=== PATIENT | male | born 1945 | race Caucasian/White ===

== ENCOUNTER → 2016-06-27 | Outpatient (CLI) | payer OTHER ==
[~2016-06-27] MED LIST: ASCA500 PO; ATOR-22 PO; ATOR-24 PO; CHOL1CAP85 PO; CRFL PO; DOCU-94 PO; DOCU100C31 PO; DOXY25TA7 PO; DRGTP100; FENT25DI10 TD; FLM4 PO; FNTTP50 TD; HYDR-5688 PO; HYG/25 PO; IBUP-1050 PO; IBUP600T44 PO; MEGE40TA13 PO; MEGESTROL PO; MISCCAP80 PO; OXYC10SO PO; PANT40TA PO; PRT/20 PO; SUCR5SUS PO; TAMS0.4C38 PO; WARF5TAB7 PO; [UNRECOGNIZED DRUG - OTHER]
--- NOTE | 2016-06-27 12:50 | DIAGNOSTIC IMAGING REPORT ---
TWO VIEW CHEST CLINICAL HISTORY: Lung cancer. FINDINGS: PA and lateral chest radiographs are compared to study 05/23/2016 and correlated with chest CT dated 06/03/2016. The PA view is degraded by patient rotation. The patient is status post midline sternotomy and cardiac valve surgery. Epicardial pacing leads are noted. The heart is top normal for projection and there is atherosclerotic calcification of the thoracic aorta. The pulmonary vasculature is noncongested. Emphysema is noted and there is chronic interstitial thickening. There are postoperative changes from left-sided pulmonary resection with compensatory hyperinflation of the right lung. The right lung appears clear. There is pleural fluid at the left lung base. Loculated fluid and gas is again noted at the left apex. These findings are unchanged from previous. Lobular pleural lesions at the lateral left lung base are more conspicuous than previous. The skeletal structures are osteopenic. Postoperative changes are seen in the left posterior ribs. IMPRESSION: 1. Advanced emphysema and postoperative changes from left-sided pulmonary resection. 2. Loculated pleural fluid is again seen at the left apex. There is also pleural fluid at the left lung base. 3. Increasing pleural-based lobular soft tissue density is identified at the lateral left lung base. The appearance is highly concerning for pleural metastatic disease when compared to the 06/03/[address] Electronically signed by: Chinedu Caban M.D. 06/27/2016 12:49 PM Dictated Date/Time: 06/27/2016 12:40 PM
== END | disposition home or self-care (01) ==
LOC: C.RAD1850 11:11
PROVIDERS: ATTEND Internal Medicine
DX: C34.90 Malignant neoplasm of unspecified part of unspecified bronchus or lung (principal)

== ENCOUNTER 2016-07-15 17:41 | Inpatient (IN) | payer OTHER ==
[~2016-07-15] VITALS: Ht 175.3 cm; Wt 59.2 kg
[~2016-07-15 17:41] MED LIST changes: -ATOR-24 PO; -CRFL PO; -DOCU-94 PO; -DOCU100C31 PO; -DOXY25TA7 PO; -DRGTP100; -FENT25DI10 TD; -FNTTP50 TD; -IBUP-1050 PO; -IBUP600T44 PO; -MEGE40TA13 PO; -MEGESTROL PO; -OXYC10SO PO; -PANT40TA PO; -PRT/20 PO; -SUCR5SUS PO; -TAMS0.4C38 PO; -WARF5TAB7 PO; -[UNRECOGNIZED DRUG - OTHER]
[2016-07-15] MEDS ORDERED: SODIUM CHLORIDE 0.9% 1000ML 1,000 ML IV ONE (18:02)
[2016-07-15] MEDS ORDERED: HYDROmorphone INJ 1 MG/ML SYR IV PRN (18:15)
[2016-07-15] MEDS ORDERED: MoRPHine SULFATE 4 MG/ML 1 ML CARP\\VIAL IV PRN (18:15)
--- NOTE | 2016-07-15 18:20 | EMERGENCY ROOM VISIT NOTE ---
History Report prepared by Emma: Alma Rosa Zamora Under the Supervision of: Dr. Ervin Olguin D.O. First contact with patient: 17:56 Chief Complaint: WEAKNESS Stated Complaint: LOSS OF BLADDER CONTROL & BALANCE,WEAKNESS,LF BACK History of Present Illness The patient is a 70 year old male who presents to the Emergency Room with complaints of severe left lower back pain starting a few days ago. He has been applying Fentanyl patch without relief. He has worsening pain with movement and palpation. He has had a reduced appetite. He has had urinary incontinence in the past few days. As per daughter, he has also been confused. He denies fevers , chills, vomiting, rash, or any other complaints. As per daughter, he had a noncontrast CT scan about a week ago which showed numerous pleural masses and the already known aneurysm but did not reveal any obstructions in the kidney. The patient fell down once 5 days ago and then another time 4 days ago. He lost his balance both times. He started complaining of some chest and shoulder pain after the fall. He also hit his head once and has a lump on the top of his head. He denies any headache. He has a history of lobectomy in February 2016. He also has a history of lung cancer, stage IV kidney disease, and pacemaker. He has been diagnosed with an aneurysm in aortic arch and in abdomen. He will have surgery for the aneurysm in the next few days. He currently does not have any active cancer. He is no longer on Coumadin. Source of History: patient Onset: a few days ago Position: back (left lower) Symptom Intensity: severe Modifying Factors (Worsening): movement, other (palpation) Modifying Factors (Relieving): other (Fentanyl patch without relief) Associated Symptoms: + chest pain, No chills, No fevers, No headache, No rash, No vomiting Review of Systems See HPI for pertinent positives & negatives. A total of 10 systems reviewed and were otherwise negative. Past Medical & Surgical Medical Problems: (1) Altered level of consciousness (2) Clotted chest tube (3) Complication of chest tube (4) H/O heart artery stent (5) Hypercalcemia (6) Lung mass (7) Myocardial infarction (8) Post-op pain Surgical Problems: (1) History of chest tube placement (2) History of open heart surgery (3) S/P lobectomy of lung Family History FH: breast cancer MOTHER Heart disease FATHER Lung disease Social History Smoking Status: Smoker Current Status UNK Alcohol Use: none Drug Use: none Marital Status: Housing Status: lives with family Occupation Status: retired Current/Historical Medications Scheduled Ascorbic Acid (Vitamin C), 500 MG PO QAM Atorvastatin (Lipitor), 40 MG PO HS Chlorthalidone (Hygroton), 25 MG PO QAM Cholecalciferol (Vitamin D3), 10,000 UNIT PO QAM Docusate Sodium (Docusate Sodium), 1 CAP PO HS Fentanyl (Duragesic), 50 MCG TD [id number] Ibuprofen (Advil), PO PRN UD Megestrol Acetate (Megace), 400 MG PO BID Pantoprazole (Protonix), 40 MG PO DAILY Probiotic Product (Probiotic), 1 CAP PO HS Sucralfate (Carafate), 1 TSP PO QID Tamsulosin Hcl (Flomax), 0.4 MG PO HS Warfarin Sod (Jantoven), 5 MG PO ON HOLD Scheduled PRN Doxylamine Succinate (Sleep) (Unisom), 50 MG PO HS PRN for Sleep Allergies Coded Allergies: Anesthetics, Amide (Unverified Allergy, Unknown, UNKNOWN REACTION TO UNKNOWN "ANESTHESIA", 06/03/16) Indomethacin (Verified Allergy, Unknown, UNKNOEN, 07/15/16) Physical Exam Vital Signs Date Time Temp Pulse Resp B/P Pulse Ox O2 Delivery O2 Flow Rate FiO2 07/15/16 20:51 66 18 126/68 94 07/15/16 19:16 72 20 117/74 93 Room Air 07/15/16 19:16 67 07/15/16 18:30 93 18 107/69 96 Room Air 07/15/16 18:27 97 Room Air 07/15/16 17:51 36.6 112 18 105/67 95 Room Air Physical Exam GENERAL: Patient is awake, alert, listless appearing, answers questions slowly , appears to be in moderate to severe pain. EYES: The conjunctivae are clear. The pupils are round and reactive. EARS, NOSE, MOUTH AND THROAT: The nose is without any evidence of any deformity. Mucous membranes are dry tongue is midline NECK: The neck is nontender and supple. RESPIRATORY: Lung sounds are diminished throughout with rales at both bases. CARDIOVASCULAR: Tachycardic rate and regular rhythm noted there no murmurs rubs or gallops normal S1 normal S2 GASTROINTESTINAL: The abdomen is soft. Bowel sounds are present in all quadrants. Abdomen is nontender. Defuse venous engorgement noted over the abdominal wall. BACK: Diffuse tenderness to palpation on left, no ecchymosis or rash. MUSCULOSKELETAL/EXTREMITIES: There is no evidence of gross deformity full range of motion is noted in the hips and shoulders SKIN: There is no obvious evidence of any rash. There are no petechiae, pallor or cyanosis noted. No edema noted. Skin is warm and dry. NEUROLOGIC: Patient is awake, alert, and oriented to person, place, and situation. Strength is symmetric. Patellar tendon reflexes 3+ bilaterally. Medical Decision & Procedures ER Provider Diagnostic Interpretation: X ray results and stated below per my interpretation and radiology interpretation. CT results per my review and radiologist interpretation: CT OF THE CHEST WITHOUT IV CONTRAST CLINICAL HISTORY: Left-sided chest pain status post trauma COMPARISON STUDY: 06/03/2016 CT DOSE: 1153.79 mGy.cm TECHNIQUE: CT of the thorax was performed from the thoracic inlet to the lung bases. Images are reviewed in the axial, sagittal, and coronal planes. IV contrast was not administered for this examination. FINDINGS: Thyroid: Imaged portions of the thyroid gland are normal in appearance. Thoracic aorta: The thoracic aorta is normal in course and caliber, noting standard 3 vessel arch anatomy. Heart: The heart is normal in size and configuration, without pericardial effusion. Lungs and pleural spaces: There is severe pulmonary emphysema. There is no pleural fluid on the right. There is a small left pleural effusion which is increasing in size. There are enlarging pleural-based nodules on the left, suspicious for metastatic disease. There is a 4.5 cm left-sided chest wall mass which appears larger on the prior study and is suspicious for neoplasm. There is a small loculated left-sided hydropneumothorax. The cavity is smaller than on the prior study. There are multiple collateral vessels within the left chest wall. There is a stable aneurysm involving the left aortic arch. There is a stable 12 mm irregular right apical opacity Mediastinum: There are borderline mediastinal lymph nodes Josephine: There is no evidence of pathologic hilar adenopathy given the limitations of a noncontrast study Axilla: There is a soft tissue mass within the left lower axilla/chest wall region. Upper abdomen: Partially visualized upper abdominal viscera is within normal limits. Skeletal structures: There are surgical deformities involving the left chest wall. IMPRESSION: 1. Advanced pulmonary emphysema 2. Postsurgical changes of a left upper lobe resection 3. Loculated left apical hydropneumothorax, decreased in size when compared the prior study 4. Stable saccular aneurysm arising from the aortic arch 5. Stable mild mediastinal lymphadenopathy 6. Slight increase in the volume of the left pleural effusion. Enlarging left-sided pleural-based nodules suspicious for metastatic disease. 7. 4.5 cm left-sided chest wall mass, suspicious for metastatic disease. 8. Postsurgical left-sided rib deformities. 9. No acute traumatic findings Electronically signed by: John Agee M.D. 07/15/2016 7:13 PM Dictated Date/Time: 07/15/2016 7:[address] SCAN OF THE ABDOMEN AND PELVIS WITHOUT CONTRAST CLINICAL HISTORY: Left flank pain status post trauma COMPARISON STUDY: 06/04/2016 TECHNIQUE: CT scan of the abdomen and pelvis was performed from the lung bases to the proximal femurs. Images are reviewed in the axial, sagittal, and coronal planes. IV contrast was not administered for this examination. CT DOSE: FINDINGS: Lower chest: There are chest wall collaterals present. There is a small left pleural effusion with pleural-based nodules suspicious for metastatic disease. There is severe pulmonary emphysema. There is subtle radiolucencies. The findings may indicate metastatic disease. Liver: The unenhanced liver is normal in size, contour, and attenuation. There is no intrahepatic biliary ductal dilatation. Gallbladder: Unremarkable. Spleen: Normal in size and attenuation. Pancreas: Unremarkable. Adrenal glands: There is mild adrenal gland thickening similar to the prior study. Kidneys: The unenhanced kidneys are normal in size without hydronephrosis. There is no contour deforming renal mass lesion. No renal calculi are identified. Bowel: There are no transition zones indicate bowel obstruction. There is no acute diverticulitis. Peritoneum: There is no intraperitoneal free air or abdominal ascites. Vasculature: There is a 6.5 cm abdominal aortic aneurysm. Adenopathy: None. Pelvic viscera: The bladder, and pelvic viscera are unremarkable. Skeletal structures: No lumbar fractures or subluxations are visualized IMPRESSION: 1. No CT evidence of acute intra-abdominal or pelvic injury 2. Small left pleural effusion and pleural-based nodularity suspicious for metastatic disease 3. Severe pulmonary emphysema 4. Equivocal subtle rib metastasis 5. 6.5 cm abdominal aortic aneurysm Electronically signed by: John Agee M.D. 07/15/2016 7:19 PM Dictated Date/Time: 07/15/2016 7:14 PM CHEST ONE VIEW PORTABLE CLINICAL HISTORY: Sepsis COMPARISON STUDY: 06/27/2016 FINDINGS: Postsurgical changes are present on the left. There are multiple left-sided rib deformities. There is left apical pleural thickening. There are several pleural-based nodules within the left hemithorax. There are postsurgical changes of a midline sternotomy. There is radiographic evidence of emphysema. There is chronic interstitial thickening most pronounced at the right lung base. This remain similar.[ IMPRESSION: 1. Postsurgical changes on the left with nonspecific pleural-based opacities and persistent left apical pleural thickening 2. Stable interstitial thickening. 3. Emphysema. Electronically signed by: John Agee M.D. 07/15/2016 6:53 PM Dictated Date/Time: 07/15/2016 6:[address] HEAD WITHOUT CONTRAST (CT) CLINICAL HISTORY: Head pain status post head trauma COMPARISON STUDY: 06/03/2016 TECHNIQUE: Axial CT of the brain is performed from the vertex to the skull base. IV contrast was not administered for this examination. CT DOSE: FINDINGS: No intra or extra-axial mass lesions are visualized. There is no CT evidence of acute cortical infarction. There is no evidence of midline shift. There is no acute hemorrhage. No calvarial fractures are visualized. There are patchy white matter hypodensities likely on a small vessel basis. There is no evidence of pathologic ventricular dilatation. There is no evidence of acute sinusitis IMPRESSION: No acute intracranial findings Electronically signed by: John Agee M.D. 07/15/2016 7:06 PM Dictated Date/Time: 07/15/2016 7:05 PM Laboratory Results Test 07/15/16 18:20 07/15/16 18:28 07/15/16 19:39 07/15/16 20:20 Immature Granulocyte % (Auto) 0.6 % White Blood Count 12.69 K/uL (4.8-10.8) Red Blood Count 4.52 M/uL (4.7-6.1) Hemoglobin 10.7 g/dL (14.0-18.0) Hematocrit 33.5 % (42-52) Mean Corpuscular Volume 74.1 fL (80-100) Mean Corpuscular Hemoglobin 23.7 pg (25-34) Mean Corpuscular Hemoglobin Concent 31.9 g/dl (32-36) Platelet Count 228 K/uL (130-400) Mean Platelet Volume 9.8 fL (7.4-10.4) Neutrophils (%) (Auto) 87.8 % Lymphocytes (%) (Auto) 8.1 % Monocytes (%) (Auto) 3.2 % Eosinophils (%) (Auto) 0.2 % Basophils (%) (Auto) 0.1 % Neutrophils # (Auto) 11.13 K/uL (1.4-6.5) Lymphocytes # (Auto) 1.03 K/uL (1.2-3.4) Monocytes # (Auto) 0.41 K/uL (0.11-0.59) Eosinophils # (Auto) 0.03 K/uL (0-0.5) Basophils # (Auto) 0.01 K/uL (0-0.2) Immature Granulocyte # (Auto) 0.08 K/uL (0.00-0.02) Erythrocyte Sedimentation Rate 84 mm/hr (0-14) Activated Partial Thromboplast Time 26.1 SECONDS (21.0-31.0) Partial Thromboplastin Ratio 1.0 Phosphorus Level 2.6 mg/dl (2.5-4.9) Magnesium Level 1.8 mg/dl (1.8-2.4) Total Bilirubin 0.4 mg/dl (0.2-1) Aspartate Amino Transf (AST/SGOT) 12 U/L (15-37) Alanine Aminotransferase (ALT/SGPT) 15 U/L (12-78) Alkaline Phosphatase 76 U/L (45-117) Total Creatine Kinase 35 U/L (39-308) Creatine Kinase MB 2.9 ng/ml (0.5-3.6) Creatine Kinase MB Ratio 8.3 (0-3.0) C-Reactive Protein 3.88 mg/dl (0-0.29) Pro-B-Type Natriuretic Peptide 1331 pg/ml (0-900) Total Protein 8.8 gm/dl (6.4-8.2) Albumin 3.1 gm/dl (3.4-5.0) Globulin 5.7 gm/dl (2.5-4.0) Albumin/Globulin Ratio 0.5 (0.9-2) Lipase 64 U/L (73-393) Bedside Lactic Acid Venous 2.05 mmol/L (0.90-1.70) Venous Blood pH 7.39 (7.36-7.41) Venous Blood Partial Pressure CO2 44 mmHg (38.0-50.0) Venous Blood Partial Pressure O2 28 mmHg Venous Blood HCO3 26 mmol/L Venous Blood Oxygen Saturation < 60.0 % Venous Blood Base Excess 0.7 mmol/L Ammonia 12.0 umol/L (11-32) Urine Color YELLOW Urine Appearance CLEAR (CLEAR) Urine pH 5.0 (4.5-7.5) Urine Specific Gracey 1.015 (1.000-1.030) Urine Protein TRACE (NEG) Urine Glucose (UA) NEG (NEG) Urine Ketones NEG (NEG) Urine Occult Blood NEG (NEG) Urine Nitrite NEG (NEG) Urine Bilirubin NEG (NEG) Urine Urobilinogen NEG (NEG) Urine Leukocyte Esterase NEG (NEG) Urine WBC (Auto) 1-5 /hpf (0-5) Urine RBC (Auto) 0-4 /hpf (0-4) Urine Hyaline Casts (Auto) 5-10 /lpf (0-5) Urine Epithelial Cells (Auto) 20-30 /lpf (0-5) Urine Bacteria (Auto) NEG (NEG) Laboratory results per my review. Medications Administered Medications (Trade) Dose Ordered Sig/Mckenzie Route Start Time Stop Time Status Last Admin Dose Admin Sodium Chloride (Nss 1000ml) 1,000 ml @ 999 mls/hr Q1H1M ONCE IV 07/15/16 18:02 07/15/16 19:02 DC 07/15/16 18:46 999 MLS/HR Hydromorphone HCl 1 mg 1 mg Q60M PRN IV 07/15/16 18:15 07/15/16 23:44 DC 07/15/16 18:48 1 MG Sodium Chloride (Nss 1000ml) 1,000 ml @ 999 mls/hr Q1H1M STAT IV 07/15/16 20:50 07/15/16 21:50 DC 07/15/16 21:18 999 MLS/HR ECG Indication: back/shoulder pain Rate (beats per minute): 76 Rhythm: normal sinus Findings: ST depression (lateral and inferior), no ectopy, other (LVH by voltage criteria) Comparison ECG Date: June 05, 2016 Change: Changes are new when compared to June 05, 2016. ED Course 175: The patient was evaluated in room C07. A complete history and physical examination were performed. 180: Sodium Chloride 1000 ml @ 999 mls/hr IV 1814: Dilaudid Inj 1 mg IV, Morphine Sulfate 4 mg IV 2049: Sodium Chloride 1000 ml @ 999 mls/hr IV 2114: Upon reevaluation, the patient is resting comfortably. I discussed results and treatment plan with the patient and his family. They verbalize agreement and understanding. [facility] The patient will be evaluated for further management and care. Medical Decision Differential diagnosis: Etiologies such as appendicitis, diverticulitis, PUD, biliary pathology, UTI, pancreatitis, obstruction, mesenteric ischemia, aortic pathology, infections, inflammatory bowel disease, renal colic, as well as others were entertained. Nursing notes reviewed. Additional history is obtained from the patient's family members. The patient is a 70-year-old male who presented to the emergency department for an evaluation with multiple complaints. The patient's been having problems with generalized weakness as well as altered mental status. He's had frequent falls recently. The patient has significant left sided pain. He does have significant vascular history including an abdominal and thoracic aortic aneurysm. The patient struck his head on one of his previous falls. I discussed patient's laboratory radiographic studies with him and his family members. It does appear the majority of his problem with explain his elevated calcium level but blood cultures were also obtained for elevated white blood count and intermittent episodes of hypotension. The patient was treated with IV fluids. I discussed the patient's laboratory and radiographic studies with him and his family. I also discussed this case with the on-call Health systemist group. They' ve agreed to evaluate the patient in the emergency apartment for further management and disposition. I will defer any antibiotic empiric treatment to the admitting team. No definite signs of infection were noted on exam or on his workup in the emergency department. He also has very significant pain because of his underlying chronic medical conditions. He was treated with IV pain medication in the emergency department. He was more comfortable on reevaluation. Consults Time Called: 2109 Consulting Physician: Dr. Helm of the [facility] Hospitalist Service Returned Call: [address] Helm of the [facility] Hospitalist Service. Impression Primary Impression: Altered mental status Additional Impressions: Hypercalcemia Abnormal white blood cell count Fracture of rib of left side Frequent falls Generalized weakness Scribe Attestation The scribe's documentation has been prepared under my direction and personally reviewed by me in its entirety. I confirm that the note above accurately reflects all work, treatment, procedures, and medical decision making performed by me. Departure Information Dispostion Being Evaluated By Hospitalist Referrals Joyce Mustafa C.R.N.P. (PCP) Patient Instructions My [facility] Health Problem Qualifiers
[2016-07-15 18:45] LABS: BASO % 0.1 %; BASO ABS # 0.01 K/uL (0-0.2); COMPLETE YES; EOS % 0.2 %; HEMATOCRIT 33.5 % (42-52); IG% 0.6 %; LYMPH % 8.1 %; LYMPH ABS # 1.03 K/uL (1.2-3.4); MEAN CELL VOLUME 74.1 fL (80-100); MEAN CORPUSCULAR HEMOGLOBIN 23.7 pg (25-34); MEAN CORPUSCULAR HGB CONC 31.9 g/dl (32-36); MEAN PLATELET VOLUME 9.8 fL (7.4-10.4); MONO % 3.2 %; NEUT % 87.8 %; PLATELET COUNT 228 K/uL (130-400); RED BLOOD COUNT 4.52 M/uL (4.7-6.1); WHITE BLOOD COUNT 12.69 K/uL (4.8-10.8)
[2016-07-15 18:54] LABS: INR 1.2 (0.9-1.1)
--- NOTE | 2016-07-15 18:55 | DIAGNOSTIC IMAGING REPORT ---
CHEST ONE VIEW PORTABLE CLINICAL HISTORY: Sepsis COMPARISON STUDY: 06/27/2016 FINDINGS: Postsurgical changes are present on the left. There are multiple left-sided rib deformities. There is left apical pleural thickening. There are several pleural-based nodules within the left hemithorax. There are postsurgical changes of a midline sternotomy. There is radiographic evidence of emphysema. There is chronic interstitial thickening most pronounced at the right lung base. This remain similar.[ IMPRESSION: 1. Postsurgical changes on the left with nonspecific pleural-based opacities and persistent left apical pleural thickening 2. Stable interstitial thickening. 3. Emphysema. Electronically signed by: John Agee M.D. 07/15/2016 6:53 PM Dictated Date/Time: 07/15/2016 6:51 PM
--- NOTE | 2016-07-15 19:08 | DIAGNOSTIC IMAGING REPORT ---
CT HEAD WITHOUT CONTRAST (CT) CLINICAL HISTORY: Head pain status post head trauma COMPARISON STUDY: 06/03/2016 TECHNIQUE: Axial CT of the brain is performed from the vertex to the skull base. IV contrast was not administered for this examination. CT DOSE: FINDINGS: No intra or extra-axial mass lesions are visualized. There is no CT evidence of acute cortical infarction. There is no evidence of midline shift. There is no acute hemorrhage. No calvarial fractures are visualized. There are patchy white matter hypodensities likely on a small vessel basis. There is no evidence of pathologic ventricular dilatation. There is no evidence of acute sinusitis IMPRESSION: No acute intracranial findings Electronically signed by: John Agee M.D. 07/15/2016 7:06 PM Dictated Date/Time: 07/15/2016 7:05 PM
--- NOTE | 2016-07-15 19:15 | DIAGNOSTIC IMAGING REPORT ---
CT OF THE CHEST WITHOUT IV CONTRAST CLINICAL HISTORY: Left-sided chest pain status post trauma COMPARISON STUDY: 06/03/2016 CT DOSE: 1153.79 mGy.cm TECHNIQUE: CT of the thorax was performed from the thoracic inlet to the lung bases. Images are reviewed in the axial, sagittal, and coronal planes. IV contrast was not administered for this examination. FINDINGS: Thyroid: Imaged portions of the thyroid gland are normal in appearance. Thoracic aorta: The thoracic aorta is normal in course and caliber, noting standard 3 vessel arch anatomy. Heart: The heart is normal in size and configuration, without pericardial effusion. Lungs and pleural spaces: There is severe pulmonary emphysema. There is no pleural fluid on the right. There is a small left pleural effusion which is increasing in size. There are enlarging pleural-based nodules on the left, suspicious for metastatic disease. There is a 4.5 cm left-sided chest wall mass which appears larger on the prior study and is suspicious for neoplasm. There is a small loculated left-sided hydropneumothorax. The cavity is smaller than on the prior study. There are multiple collateral vessels within the left chest wall. There is a stable aneurysm involving the left aortic arch. There is a stable 12 mm irregular right apical opacity Mediastinum: There are borderline mediastinal lymph nodes Josephine: There is no evidence of pathologic hilar adenopathy given the limitations of a noncontrast study Axilla: There is a soft tissue mass within the left lower axilla/chest wall region. Upper abdomen: Partially visualized upper abdominal viscera is within normal limits. Skeletal structures: There are surgical deformities involving the left chest wall. IMPRESSION: 1. Advanced pulmonary emphysema 2. Postsurgical changes of a left upper lobe resection 3. Loculated left apical hydropneumothorax, decreased in size when compared the prior study 4. Stable saccular aneurysm arising from the aortic arch 5. Stable mild mediastinal lymphadenopathy 6. Slight increase in the volume of the left pleural effusion. Enlarging left-sided pleural-based nodules suspicious for metastatic disease. 7. 4.5 cm left-sided chest wall mass, suspicious for metastatic disease. 8. Postsurgical left-sided rib deformities. 9. No acute traumatic findings Electronically signed by: John Agee M.D. 07/15/2016 7:13 PM Dictated Date/Time: 07/15/2016 7:07 PM
--- NOTE | 2016-07-15 19:20 | DIAGNOSTIC IMAGING REPORT ---
CT SCAN OF THE ABDOMEN AND PELVIS WITHOUT CONTRAST CLINICAL HISTORY: Left flank pain status post trauma COMPARISON STUDY: 06/04/2016 TECHNIQUE: CT scan of the abdomen and pelvis was performed from the lung bases to the proximal femurs. Images are reviewed in the axial, sagittal, and coronal planes. IV contrast was not administered for this examination. CT DOSE: FINDINGS: Lower chest: There are chest wall collaterals present. There is a small left pleural effusion with pleural-based nodules suspicious for metastatic disease. There is severe pulmonary emphysema. There is subtle radiolucencies. The findings may indicate metastatic disease. Liver: The unenhanced liver is normal in size, contour, and attenuation. There is no intrahepatic biliary ductal dilatation. Gallbladder: Unremarkable. Spleen: Normal in size and attenuation. Pancreas: Unremarkable. Adrenal glands: There is mild adrenal gland thickening similar to the prior study. Kidneys: The unenhanced kidneys are normal in size without hydronephrosis. There is no contour deforming renal mass lesion. No renal calculi are identified. Bowel: There are no transition zones indicate bowel obstruction. There is no acute diverticulitis. Peritoneum: There is no intraperitoneal free air or abdominal ascites. Vasculature: There is a 6.5 cm abdominal aortic aneurysm. Adenopathy: None. Pelvic viscera: The bladder, and pelvic viscera are unremarkable. Skeletal structures: No lumbar fractures or subluxations are visualized IMPRESSION: 1. No CT evidence of acute intra-abdominal or pelvic injury 2. Small left pleural effusion and pleural-based nodularity suspicious for metastatic disease 3. Severe pulmonary emphysema 4. Equivocal subtle rib metastasis 5. 6.5 cm abdominal aortic aneurysm Electronically signed by: John Agee M.D. 07/15/2016 7:19 PM Dictated Date/Time: 07/15/2016 7:14 PM
[2016-07-15 19:25] LABS: ALB/GLOB RATIO 0.5 (0.9-2); BUN/CREATININE RATIO 33.5 (10-20); C-REACTIVE PROTEIN 3.88 mg/dl (0-0.29); CALCIUM 13.6 mg/dl (8.5-10.1); CKMB/CK RATIO 8.3 (0-3.0); CREATININE 1.7 mg/dl (0.60-1.40); MAGNESIUM 1.8 mg/dl (1.8-2.4); PHOSPHORUS 2.6 mg/dl (2.5-4.9); POTASSIUM 3.2 mmol/L (3.5-5.1)
[2016-07-15 19:51] LABS: VEN BLOOD GAS BASE EXCESS 0.7 mmol/L; VENOUS BLOOD GAS PCO2 44 mmHg (38.0-50.0); VENOUS BLOOD GAS PO2 28 mmHg
[2016-07-15 20:00] LABS: VEN BLD GAS O2 SATURATION < 60.0 %
[2016-07-15] MEDS ORDERED: IBUP-1050 PO (20:35)
[2016-07-15] MEDS ORDERED: DOCU100C31 PO (20:35)
[2016-07-15] MEDS ORDERED: MISCCAP80 PO (20:35)
[2016-07-15] MEDS ORDERED: TAMS0.4C38 PO (20:35)
[2016-07-15] MEDS ORDERED: WARF5TAB7 PO (20:35)
[2016-07-15] MEDS ORDERED: PANT40TA PO (20:35)
[2016-07-15] MEDS ORDERED: ATOR-24 PO (20:35)
[2016-07-15] MEDS ORDERED: CRFL PO (20:35)
[2016-07-15] MEDS ORDERED: DOXY25TA7 PO (20:35)
[2016-07-15] MEDS ORDERED: FNTTP50 TD (20:38)
[2016-07-15] MEDS ORDERED: MEGESTROL PO (20:38)
[2016-07-15 20:41] LABS: MANUAL MICROSCOPIC REQUIRED? NO; REVIEW REQ? NO; URINE APPEARANCE CLEAR (CLEAR); URINE BILIRUBIN NEG (NEG); URINE COLOR YELLOW; URINE EPITHELIAL CELL AUTO 20-30 /lpf (0-5); URINE NITRITE NEG (NEG); URINE SPECIFIC GRAVITY 1.015 (1.000-1.030); UROBILINOGEN NEG (NEG); ZZURINE CULT IF INDIC CATH NO
[2016-07-15] MEDS ORDERED: SODIUM CHLORIDE 0.9% 1000ML 1,000 ML IV STA (20:50)
[2016-07-15] MEDS ORDERED: DOXYLAMINE SUCCINATE 50 MG PO PRN (22:00)
[2016-07-15] MEDS ORDERED: ALUMINUM/MAGNESIUM/SIMETH (MAALOX MAX) 30 ML UDC PO PRN (22:30)
[2016-07-15] MEDS ORDERED: ACETAMINOPHEN 325 MG TAB PO PRN (22:30)
[2016-07-15] MEDS ORDERED: ONDANSETRON INJ 2 MG/ML 2 ML VIAL IV PRN (22:30)
--- NOTE | 2016-07-15 23:29 | History and Physical ---
History & Physical Date & Time of Service: Jul 15, 2016 at 22:29 Chief Complaint: Loss Of Bladder Control & Balance,Weakness,Lf Back Primary Care Physician: Joyce Mustafa C.R.N.P. History of Present Illness Source: patient, family, clinic records, hospital records Difficult history taken from the patient, daughter Florence did help with the history This is a 70 yo m with COPD, CAD, CKD, s/p left upper lobectomy and known squamous cell carcinoma of the lung that is presenting to us with ALOC. For approximately one week the patient has been having a decrease in his appetite and increasing weakness. He states he has also had two falls. Neither of the falls were associated with presyncope, syncope or chest pain he simply lost his balance. He did not hit his head during either of these falls. When asking the patient about the events he knows he fell but states he does not remember anything revolving around these events. The daughter also states that the patient has been having increasing episodes of incontinence and oxygen requirements. He typically uses 2 L with activity or sleep but seems to need it more often. They came to the ED for evaluation as his mentation continued to degrade. He was found to have a mild leukocytosis so blood cultures were drawn as well as a lactate. He was found to have a calcium of >13. He was previously admitted in [facility] for a calcium of > 12. Fluids were started in the ED and hospitalist was consulted for admission. He does have a significant PMHx. He has multiple known aneurysms, a fusiform of proximal subclavian (Left), saccular of AOA and an AAA> 6 cm. On previous admission the AAA was discussed and it was decided he would go to a tertiary centre for surgery of this. It was to be done in [address] Yunior Pérez in [facility]. Preemptively for his surgery he was told to hold his Warfarin. He has not been taking his Warfarin for a few days because of this. He is on Warfarin for previous PE and PAF. He had two pacemakers in the past according to the daughter but they were removed and was told they were not needed any more. His last echo was Jan and was a stress dobutamine test. (results in assessment). He has not smoked since Feb 2016 however was smoking 1 PPD x 60 years. Past Medical/Surgical History COPD CABG GA x 2 CKD HTN Hypercholesterolemia AAA Squamous cell lung cancer Gastritis BPH s/p left upper lobectomy Family History FH: breast cancer MOTHER Heart disease FATHER Lung disease Social History Smoking Status: Former Smoker Smokeless Tobacco Use: Yes Alcohol Use: occasionally Drug Use: none Marital Status: single Housing status: lives with family Occupational Status: retired Multi-Drug Resistant Organisms History of MDRO: No Allergies Coded Allergies: Anesthetics, Amide (Unverified Allergy, Unknown, UNKNOWN REACTION TO UNKNOWN "ANESTHESIA", 06/03/16) Indomethacin (Verified Allergy, Unknown, UNKNOEN, 07/15/16) Home Medications Scheduled Ascorbic Acid (Vitamin C), 500 MG PO QAM Atorvastatin (Lipitor), 40 MG PO HS Chlorthalidone (Hygroton), 25 MG PO QAM Cholecalciferol (Vitamin D3), 10,000 UNIT PO QAM Docusate Sodium (Docusate Sodium), 1 CAP PO HS Fentanyl (Duragesic), 50 MCG TD [id number] Ibuprofen (Advil), PO PRN UD Pantoprazole (Protonix), 40 MG PO DAILY Probiotic Product (Probiotic), 1 CAP PO HS Sucralfate (Carafate), 1 TSP PO QID Tamsulosin Hcl (Flomax), 0.4 MG PO HS Warfarin Sod (Jantoven), 5 MG PO ON HOLD [Megestrol 10ML/200MG], 40 MG PO BID Scheduled PRN Doxylamine Succinate (Sleep) (Unisom), 50 MG PO HS PRN for Sleep Review of Systems Limited ROS because patient is a poor historian Constitutional: No fever Respiratory: + dyspnea at rest, + dyspnea on exertion, No cough Cardiovascular: No chest pain Abdomen: + problem reported (decreased appetite) Musculoskeletal: + problem reported (as per daughter, lower back pain has been increasing) Genitourinary - Male: + urinary incontinence Neurologic: + balance problems, + memory loss, + weakness Endocrine: + fatigue Physical Exam Vital Signs Date Time Temp Pulse Resp B/P Pulse Ox O2 Delivery O2 Flow Rate FiO2 07/15/16 20:51 66 18 126/68 94 07/15/16 19:16 72 20 117/74 93 Room Air 07/15/16 19:16 67 07/15/16 18:30 93 18 107/69 96 Room Air 07/15/16 18:27 97 Room Air 07/15/16 17:51 36.6 112 18 105/67 95 Room Air General Appearance: WD/WN, no apparent distress, + cachetic Head: normocephalic, atraumatic Eyes: normal inspection ENT: normal ENT inspection Neck: supple Respiratory/Chest: + decreased breath sounds (bilat bases and upper left lung) , + pertinent finding (prolonged expiratory phase) Cardiovascular: regular rate, rhythm, normal peripheral pulses, + systolic murmur (4/6) Abdomen/GI: normal bowel sounds, soft, + tenderness (left upper quadrant mildly tender) Back: normal inspection Extremities/Musculoskelatal: normal inspection, no calf tenderness Neurologic/Psych: alert, oriented x 3 Skin: normal color, warm/dry, no rash Lymphatic: no adenopathy Diagnostics Laboratory Results Results Past 24 Hours Test 07/15/16 18:20 07/15/16 18:28 07/15/16 19:39 07/15/16 20:20 Range/Units White Blood Count 12.69 4.8-10.8 K/uL Red Blood Count 4.52 4.7-6.1 M/uL Hemoglobin 10.7 14.0-18.0 g/dL Hematocrit 33.5 42-52 % Mean Corpuscular Volume 74.1 80-100 fL Mean Corpuscular Hemoglobin 23.7 25-34 pg Mean Corpuscular Hemoglobin Concent 31.9 32-36 g/dl Platelet Count 228 130-400 K/uL Mean Platelet Volume 9.8 7.4-10.4 fL Neutrophils (%) (Auto) 87.8 % Lymphocytes (%) (Auto) 8.1 % Monocytes (%) (Auto) 3.2 % Eosinophils (%) (Auto) 0.2 % Basophils (%) (Auto) 0.1 % Neutrophils # (Auto) 11.13 1.4-6.5 K/uL Lymphocytes # (Auto) 1.03 1.2-3.4 K/uL Monocytes # (Auto) 0.41 0.11-0.59 K/uL Eosinophils # (Auto) 0.03 0-0.5 K/uL Basophils # (Auto) 0.01 0-0.2 K/uL RDW Standard Deviation 52.8 36.4-46.3 fL RDW Coefficient of Variation 19.5 11.5-14.5 % Immature Granulocyte % (Auto) 0.6 % Immature Granulocyte # (Auto) 0.08 0.00-0.02 K/uL Erythrocyte Sedimentation Rate 84 0-14 mm/hr Prothrombin Time 13.0 9.0-12.0 SECONDS Prothromb Time International Ratio 1.2 0.9-1.1 Activated Partial Thromboplast Time 26.1 21.0-31.0 SECONDS Partial Thromboplastin Ratio 1.0 Sodium Level 138 136-145 mmol/L Potassium Level 3.2 3.5-5.1 mmol/L Chloride Level 102 98-107 mmol/L Carbon Dioxide Level 25 21-32 mmol/L Anion Gap 11.0 3-11 mmol/L Blood Urea Nitrogen 57 7-18 mg/dl Creatinine 1.70 0.60-1.40 mg/dl Est Creatinine Clear Calc Drug Dose 33.4 ml/min Estimated GFR () 46.0 Estimated GFR (Non- 39.7 BUN/Creatinine Ratio 33.5 10-20 Random Glucose 168 70-99 mg/dl Calcium Level 13.6 8.5-10.1 mg/dl Phosphorus Level 2.6 2.5-4.9 mg/dl Magnesium Level 1.8 1.8-2.4 mg/dl Total Bilirubin 0.4 0.2-1 mg/dl Aspartate Amino Transf (AST/SGOT) 12 15-37 U/L Alanine Aminotransferase (ALT/SGPT) 15 12-78 U/L Alkaline Phosphatase 76 45-117 U/L Total Creatine Kinase 35 39-308 U/L Creatine Kinase MB 2.9 0.5-3.6 ng/ml Creatine Kinase MB Ratio 8.3 0-3.0 Troponin I 0.070 0-0.045 ng/ml C-Reactive Protein 3.88 0-0.29 mg/dl Pro-B-Type Natriuretic Peptide 1331 0-900 pg/ml Total Protein 8.8 6.4-8.2 gm/dl Albumin 3.1 3.4-5.0 gm/dl Globulin 5.7 2.5-4.0 gm/dl Albumin/Globulin Ratio 0.5 0.9-2 Lipase 64 73-393 U/L Bedside Lactic Acid Venous 2.05 0.90-1.70 mmol/L Venous Blood pH 7.39 7.36-7.41 Venous Blood Partial Pressure CO2 44 38.0-50.0 mmHg Venous Blood Partial Pressure O2 28 mmHg Venous Blood HCO3 26 mmol/L Venous Blood Oxygen Saturation < 60.0 % Venous Blood Base Excess 0.7 mmol/L Ammonia 12.0 11-32 umol/L Urine Color YELLOW Urine Appearance CLEAR CLEAR Urine pH 5.0 4.5-7.5 Urine Specific [place] 1.015 1.000-1.030 Urine Protein TRACE NEG Urine Glucose (UA) NEG NEG Urine Ketones NEG NEG Urine Occult Blood NEG NEG Urine Nitrite NEG NEG Urine Bilirubin NEG NEG Urine Urobilinogen NEG NEG Urine Leukocyte Esterase NEG NEG Urine WBC (Auto) 1-5 0-5 /hpf Urine RBC (Auto) 0-4 0-4 /hpf Urine Hyaline Casts (Auto) 5-10 0-5 /lpf Urine Epithelial Cells (Auto) 20-30 0-5 /lpf Urine Bacteria (Auto) NEG NEG Test 07/15/16 21:51 07/15/16 21:59 Range/Units Microbiology Results 07/15/16 Blood Culture, Received Pending 07/15/16 Blood Culture, Received Pending Diagnostic Radiology CT OF THE CHEST WITHOUT IV CONTRAST CLINICAL HISTORY: Left-sided chest pain status post trauma COMPARISON STUDY: 06/03/2016 CT DOSE: 1153.79 mGy.cm TECHNIQUE: CT of the thorax was performed from the thoracic inlet to the lung bases. Images are reviewed in the axial, sagittal, and coronal planes. IV contrast was not administered for this examination. FINDINGS: Thyroid: Imaged portions of the thyroid gland are normal in appearance. Thoracic aorta: The thoracic aorta is normal in course and caliber, noting standard 3 vessel arch anatomy. Heart: The heart is normal in size and configuration, without pericardial effusion. Lungs and pleural spaces: There is severe pulmonary emphysema. There is no pleural fluid on the right. There is a small left pleural effusion which is increasing in size. There are enlarging pleural-based nodules on the left, suspicious for metastatic disease. There is a 4.5 cm left-sided chest wall mass which appears larger on the prior study and is suspicious for neoplasm. There is a small loculated left-sided hydropneumothorax. The cavity is smaller than on the prior study. There are multiple collateral vessels within the left chest wall. There is a stable aneurysm involving the left aortic arch. There is a stable 12 mm irregular right apical opacity Mediastinum: There are borderline mediastinal lymph nodes Josephine: There is no evidence of pathologic hilar adenopathy given the limitations of a noncontrast study Axilla: There is a soft tissue mass within the left lower axilla/chest wall region. Upper abdomen: Partially visualized upper abdominal viscera is within normal limits. Skeletal structures: There are surgical deformities involving the left chest wall. IMPRESSION: 1. Advanced pulmonary emphysema 2. Postsurgical changes of a left upper lobe resection 3. Loculated left apical hydropneumothorax, decreased in size when compared the prior study 4. Stable saccular aneurysm arising from the aortic arch 5. Stable mild mediastinal lymphadenopathy 6. Slight increase in the volume of the left pleural effusion. Enlarging left-sided pleural-based nodules suspicious for metastatic disease. 7. 4.5 cm left-sided chest wall mass, suspicious for metastatic disease. 8. Postsurgical left-sided rib deformities. 9. No acute traumatic findings CT SCAN OF THE ABDOMEN AND PELVIS WITHOUT CONTRAST CLINICAL HISTORY: Left flank pain status post trauma COMPARISON STUDY: 06/04/2016 TECHNIQUE: CT scan of the abdomen and pelvis was performed from the lung bases to the proximal femurs. Images are reviewed in the axial, sagittal, and coronal planes. IV contrast was not administered for this examination. CT DOSE: FINDINGS: Lower chest: There are chest wall collaterals present. There is a small left pleural effusion with pleural-based nodules suspicious for metastatic disease. There is severe pulmonary emphysema. There is subtle radiolucencies. The findings may indicate metastatic disease. Liver: The unenhanced liver is normal in size, contour, and attenuation. There is no intrahepatic biliary ductal dilatation. Gallbladder: Unremarkable. Spleen: Normal in size and attenuation. Pancreas: Unremarkable. Adrenal glands: There is mild adrenal gland thickening similar to the prior study. Kidneys: The unenhanced kidneys are normal in size without hydronephrosis. There is no contour deforming renal mass lesion. No renal calculi are identified. Bowel: There are no transition zones indicate bowel obstruction. There is no acute diverticulitis. Peritoneum: There is no intraperitoneal free air or abdominal ascites. Vasculature: There is a 6.5 cm abdominal aortic aneurysm. Adenopathy: None. Pelvic viscera: The bladder, and pelvic viscera are unremarkable. Skeletal structures: No lumbar fractures or subluxations are visualized IMPRESSION: 1. No CT evidence of acute intra-abdominal or pelvic injury 2. Small left pleural effusion and pleural-based nodularity suspicious for metastatic disease 3. Severe pulmonary emphysema 4. Equivocal subtle rib metastasis 5. 6.5 cm abdominal aortic aneurysm CHEST ONE VIEW PORTABLE CLINICAL HISTORY: Sepsis COMPARISON STUDY: 06/27/2016 FINDINGS: Postsurgical changes are present on the left. There are multiple left-sided rib deformities. There is left apical pleural thickening. There are several pleural-based nodules within the left hemithorax. There are postsurgical changes of a midline sternotomy. There is radiographic evidence of emphysema. There is chronic interstitial thickening most pronounced at the right lung base. This remain similar.[ IMPRESSION: 1. Postsurgical changes on the left with nonspecific pleural-based opacities and persistent left apical pleural thickening 2. Stable interstitial thickening. 3. Emphysema. CT HEAD WITHOUT CONTRAST (CT) CLINICAL HISTORY: Head pain status post head trauma COMPARISON STUDY: 06/03/2016 TECHNIQUE: Axial CT of the brain is performed from the vertex to the skull base. IV contrast was not administered for this examination. CT DOSE: FINDINGS: No intra or extra-axial mass lesions are visualized. There is no CT evidence of acute cortical infarction. There is no evidence of midline shift. There is no acute hemorrhage. No calvarial fractures are visualized. There are patchy white matter hypodensities likely on a small vessel basis. There is no evidence of pathologic ventricular dilatation. There is no evidence of acute sinusitis IMPRESSION: No acute intracranial findings EKG 76 bpm Qtc 344 NSR Impression Assessment and Plan Documented By: Kristian Helm This is a 70 yo m with a h/o COPD, CAD, squamous cell carcinomas/p left upper lung lobectomy that is here for ALOC and hypercalcemia Metabolic encephalopathy secondary to dehydration vs hypercalcemia vs DEVANG - see below for individual care of each Moderate Hypercalcemia most likely secondary to metastatic lesions vs paraneoplastic process - NSS @ 150, received bolus in ED - refrain from lasix because of DEVANG - Because may be secondary to mets Solu Medrol - Zoledronic Acid 4 mg IV x 1 - Ionized calcium, PTH, Vit D levels - Vit D3 held and Chlorthalidone - potentiating agents - I&O and daily weight echo- Jan 2016 - EF 60-65% - flattened septum reflecting increased RV volume/ pressure - Mild conc LVH - no stress induced segmental wall motion abn Leukocytosis most likely secondary to stress response - recheck CBC in the am - blood cx are pending - o2 per nursing protocol - hold abx for now as most likely confusion is secondary to the calcium - repeat lactate, elevation may be secondary to the devang DEVANG on CKD III most likely secondary to dehydration vs hypercalcemia - IVF as noted above - recheck BMP in the am Squamous cell lung cancer, revealing progression on imaging - MRI brain - fentanyl for pain control Elevated troponin most likely secondary to supply and demand - repeat troponin x 3 - minimally elevated and patient has been asymptomatic, EKG was not suggestive of ischemia or heart strain AAA- stable - patient was told to hold his warfarin because of the surgery - we discussed the R/B/A of this and would still like to hold HTN - Chlorthalidone held - monitor bp BPH - continue tamsulosin H/O Gastritis - continue pantoprazole and Sulcralfate Hypercholesterolemia - continue atorvastatin DVT prophylaxis - agreeable to have heparin DNR Resident Physician Supervision Note: I was present with [Name of resident] during the history and exam. I discussed the case with the resident and agree with the findings and plan as documented in the note. Any exceptions or clarifications are listed here Pt seen/examined personally Multiple medical issues stemming from met lung CA presenting with generalized weakness, unsteady gait, pain and abnormal labs most notably a critical calcium level Case was discussed with family, resident and ER MD Plan: 1) treat hyperCA and aggressively hydrate 2) no current evidence of infectious etiology however cultures are pending 3) Control pain and involve PT/OT for dispo 4) Discuss long-term goals with family as he has been evaluated by the palliative service previously 5) Reg his aneurysms, potential intervention and plans fro chemotherapy this should again depend on how he responds to current therapy and his constitutional status at the time of eval for D/C Level of Care Med/Surg Resuscitation Status DO NOT RESUSCITATE VTE Prophylaxis VTE Risk Assessment Done? Y/N: Yes Risk Level: Moderate Given or contraindicated: Unfractionated heparin SQ Social Service Consult None Apply Note Total Time: Critical Care 30 - 74 minutes Additional Copies To Joyce Mustafa C.R.N.P.
[2016-07-16 00:06] VITALS: BP 132/79; PULSE 78; TEMP 36.6; O2SAT 99
[2016-07-16] MEDS ORDERED: POTASSIUM CHLORIDE 20 MEQ TABCR PO STA (00:39)
[2016-07-16] MEDS: SODIUM CHLORIDE 0.9% 1000ML 1,000 ML IV SCH ×4 (00:48→21:44)
[2016-07-16] MEDS ORDERED: ZOLEDRONIC ACID INJ 4 MG in SODIUM CHLORIDE 0.9% 100ML 100 ML IV STA (00:53)
[2016-07-16] MEDS: METHYLPREDNISOLONE IV 40 MG in SYRINGE 0 ML IV SCH ×3 (01:52→16:14)
[2016-07-16 05:08] VITALS: BP 132/79; PULSE 78; TEMP 36.6; Ht 175.3 cm; Wt 59.2 kg
[2016-07-16 06:02] LABS: HEMATOCRIT 28.1 % (42-52); MEAN CORPUSCULAR HEMOGLOBIN 23.4 pg (25-34); MEAN PLATELET VOLUME 9.4 fL (7.4-10.4); PLATELET COUNT 188 K/uL (130-400); RED BLOOD COUNT 3.85 M/uL (4.7-6.1); WHITE BLOOD COUNT 13.89 K/uL (4.8-10.8)
[2016-07-16 06:18] LABS: INR 1.3 (0.9-1.1); PROTHROMBIN TIME (PATIENT) 13.8 SECONDS (9.0-12.0)
[2016-07-16 06:41] LABS: BUN/CREATININE RATIO 41.4 (10-20); CALCIUM 12.7 mg/dl (8.5-10.1); CREATININE 1.2 mg/dl (0.60-1.40)
[2016-07-16 07:09] VITALS: BP 134/80; PULSE 87; TEMP 36.4; O2SAT 96
[2016-07-16] MEDS ORDERED: MoRPHine SULFATE 2 MG/ML CARP IV PRN (08:15)
[2016-07-16] MEDS ORDERED: MEGE40TA13 PO (08:27)
--- NOTE | 2016-07-16 08:30 | Family Medicine Progress Note ---
Progress Note Date of Service Jul 16, 2016. Subjective Pt evaluation today including: conversation w/ patient Pain: 7/10 Voiding: no voiding problems Patient seemed extremely uncomfortable due to pain on the left lateral chest wall Also complains of upper abdominal pain Reports feeling a mass just below the left axilla that is extremely tender Also has some shortness of breath. Constitutional: + fatigue, + weakness, + weight loss, No chills, No fever Eyes: No worsening of vision Respiratory: + dyspnea on exertion, + shortness of breath, No cough, No sputum Cardiovascular: No chest pain Abdomen: + nausea, No diarrhea, No pain, No vomiting Male : No dysuria, No urinary frequency Objective Physical Exam General Appearance: + mild distress Eyes: PERRL, EOMI ENT: hearing grossly normal, pharynx normal Neck: supple, no adenopathy Respiratory/Chest: no respiratory distress, no accessory muscle use, + decreased breath sounds, + pertinent finding (chest wall tenderness, Left axillay mass palpable) Cardiovascular: regular rate, rhythm, + systolic murmur Abdomen: normal bowel sounds, + tenderness (epigastric) Extremities: non-tender, normal inspection, no pedal edema Neurologic/Psychiatric: 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 He was found to be hypercalcemic. Question as to whether this is a paraneoplastic process or from metastatic disease. However, there seems to be evidence of metastatic lesions of Chest CT. w.r.t to AAA, we had concerns about the procedure being high risk and in the setting of malignancy - the outcome of the procedure. However, the concern is that the AAA will likely rupture before complication from the Cancer ( ~stage 11A). His expected prognosis from the cancer is about 5 years vs. 6 mo from the AAA. Altered mental status 2/2 Hypercalcemia/dehydration/Hypercalcemia: - Head ct negative - Cant do an MRI brain because supposedly has pacemaker leads still implanted - still waxing and waning - continue hydration Moderate Hypercalcemia most likely secondary to metastatic lesions vs paraneoplastic process - Continue NSS, monitor for volume overload - Solu Medrol - Zoledronic Acid 4 mg IV x 1 - consider Calcitonin - elevated corrected calcium 13.4 - Vit D3 held and Chlorthalidone - I&O and daily weight echo- Jan 2016 - EF 60-65% - flattened septum reflecting increased RV volume/ pressure - Mild conc LVH - no stress induced segmental wall motion abn Leukocytosis -likely stress - recheck CBC in the am - blood cx are pending - repeat lactate, elevation may be secondary to the devang DEVANG on CKD III - IVF as noted above - recheck BMP in the am Squamous cell lung cancer, possible new mets - MRI brain - cannot be done due to pacemaker leads unremoved - fentanyl for pain control - Dilaudid and morphine PRN - Case discussed with Dr. Deluna who was kind enough to see the patient and will be doing an aspiration of left axillary mass tomorrow - Heme/onc consulted for further recommendations Elevated troponin - demand ischemia - repeat troponin trending now - EKG was not suggestive of ischemia or heart strain AAA- somewhat unstable with tenderness - has repair scheduled in 2 weeks in [place] - high likelihood of rupture - family aware of risks, discussed with Dr. Deluna HTN - Chlorthalidone held - monitor bp BPH - continue tamsulosin H/O Gastritis - continue pantoprazole and Sulcralfate Hypercholesterolemia - continue atorvastatin DVT prophylaxis - heparin DNR History Resident Physician Supervision Note: I was present with Dr. Novak during the history and exam. I discussed the case with the resident and agree with the findings and plan as documented in the note. Any exceptions or clarifications are listed here. Pt seen and examined at bedside. Complains of persistent, chronic epigastric pain in the area of his AAA, as well as some superficial left chest pain which is reproducible to palpation. At this time, he is oriented x3 and able to understand the state of his care. He reports no fever, LEMONS, lightheadedness, dizziness, nausea, vomiting, SOB, numbness, tingling, twitching or arthralgia/ myalgia. General Appearance: mild distress, cachetic Respiratory: normal breath sounds, decreased breath sounds (of the b/l bases) Cardiovascular: normal peripheral pulses, regular rate, rhythm, no edema, systolic murmur (2/6 ESTELLA) Gastrointestinal: normal bowel sounds, soft, no organomegaly, guarding, tenderness (epigastrically which reproduces chronic pain w/ light palpation) Neurologic/Psychiatric: alert, normal mood/affect, oriented x 3 Assessment/Plan 70 y/o male h/o COPD, CAD, SCC of the lung p/w metabolic encephalopathy in the setting of multiple issues Metabolic encephalopathy - improving with management of underlying conditions Hypercalcemia - PTH < 5.5, PTHrP pending - s/p zoledronic acid - monitor BMP, continue hydration, t/c bone scan for ?metastatic dz resulting in breakdown DEVANG on CKD III - improving, continue hydration, monitor I/O Elevated troponin - stable, likely 2/2 DEVANG on CKD resulting in prolonged clearance Leukocytosis - trend CBC, f/u BCx AAA - stable. CT surgery aware and input appreciated - per Dr. 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
[2016-07-16] MEDS ORDERED: ENOXAPARIN 40 MG/0.4 ML SYR SQ SCH (09:00)
[2016-07-16] MEDS: HEPARIN SOD 5000 UNIT/0.5 ML CARP SQ SCH ×2 (09:00→21:29)
[2016-07-16] MEDS ORDERED: WARFARIN SOD 5 MG TAB PO SCH (09:00)
[2016-07-16] MEDS: FENTANYL 50 MCG/HR TDSY TD SCH (09:24)
[2016-07-16] MEDS: MEGESTROL ACETATE 400 MG/10 ML UDP PO SCH ×2 (09:24→21:45)
[2016-07-16] MEDS: PANTOprazole SOD 40 MG TAB PO SCH (09:25)
[2016-07-16] MEDS: SUCRALFATE 1 GM/10 ML UDC PO SCH ×4 (09:25→21:44)
[2016-07-16] MEDS: ASCORBIC ACID 500 MG TAB PO SCH (09:26)
[2016-07-16] MEDS: FENTANYL PATCH REMOVE & WASTE SCH (09:39)
[2016-07-16] MEDS: HYDROmorphone INJ 1 MG/ML SYR IV PRN ×3 (09:40→21:46)
[2016-07-16 15:11] VITALS: BP 124/77; PULSE 80; TEMP 36.6; O2SAT 96
[2016-07-16] MEDS: CHECK FENTANYL PATCH PLACEMENT SCH (16:14)
[2016-07-16] MEDS ORDERED: NURSING VERBAL MED ORDER ONE (19:15)
[2016-07-16] MEDS ORDERED: POLYETHYLENE (MIRALAX) 17 GM PACK PO PRN (19:30)
[2016-07-16] MEDS: DOCUSATE SODIUM 100 MG CAP PO SCH (21:45)
[2016-07-16] MEDS: TAMSULOSIN HCL 0.4 MG CAP PO SCH (21:45)
[2016-07-16] MEDS: ATORVASTATIN 40 MG TAB PO SCH (21:45)
[2016-07-16] MEDS: LACTOBACILLUS ACIDOPHILUS (FLORANEX) TAB PO SCH (21:46)
--- NOTE | 2016-07-16 21:52 | SURGICAL CONSULTATION ---
DATE OF CONSULTATION: 07/16/2016 HISTORY OF PRESENT ILLNESS: Mr. Mckinnon is a 70-year-old male that I know well. He had a nonsmall cell lung carcinoma growing into his chest wall when I saw him about 5 months ago. I performed a thoracoscopic left upper lobectomy with an en bloc chest wall resection. It was a T3 lesion; however, all the lymph nodes were negative. He had problems with a prolonged air leak and had probable empyema which eventually settled down, we were able to get all his chest tubes out. He was also found to have 3 separate aneurysms. 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 It now measures 6.6 cm. It measured 6.2 cm back in January. He also has some tenderness. He is a very complex case as it is a juxtarenal aneurysm. He was [place] to undergo evaluation out of state for this. However, he presented back in May with hypercalcemia. I assumed at that time this was probably due to dehydration as it quickly resolved with hydration; however, he presents back now with a calcium over 13. He has not been eating well. He is eating better since he got here. At this point, I would be very concerned about his CT scan. He has a new mass in the subcutaneous area, just posterior to his left chest incision from his thoracoscopic surgery. He also has a nodule which I did not feel represented metastatic disease as it would have been very quick to develop after 3 months. However, it has gotten larger since last month and now I am more concerned about it. I had a long talk with the patient who is still a bit confused and I talked to his daughter Florence, who I have spoken to on multiple occasions. He continues to lose weight. I have told them that we are going to needle this mass in his left chest subcutaneous tissues or chest wall to see if he has metastatic disease, in which case we would focus our attention on his malignancy rather than his aneurysm. I will say I have been concerned about his aneurysm because it is very tender. PAST MEDICAL HISTORY: 1. Squamous cell carcinoma, left upper lobe. 2. Enlarging abdominal aortic aneurysm. 3. Hypercholesterolemia. 4. Gastritis. 5. Hypertension. 6. Chronic renal insufficiency. 7. Coronary artery disease. 8. Myocardial infarction x2. 9. Chronic obstructive pulmonary disease. 10. Midline sternotomy to treat his pacemaker issues. 11. Multiple pacemaker insertions. 12. Superior vena caval syndrome. PAST SURGICAL HISTORY: Thoracoscopic left upper lobectomy with en bloc chest wall resection. ALLERGIES: INDOMETHACIN AND AMIDE ANESTHETICS. SOCIAL HISTORY: The patient lives alone. He is retired. He has not smoked since February. His daughters are very attentive. REVIEW OF SYSTEMS: The patient continues to lose weight. He denies fevers or chills. He has marked dyspnea. He denies chest pain other than on his left side. He does have abdominal pain and anorexia. He complains of lower back pain which is a chronic problem. He had some urinary incontinence. He has also had some balance issues. PHYSICAL EXAMINATION: GENERAL: This is a thin white male who appears his stated age. He stands 5 feet 9 inches tall and weighs 130 pounds. At the time of surgery, he weighed about 15-20 pounds more than he weighs now. This is a cachectic appearing white male who appears to be a bit confused. HEENT: His extraocular movements are intact. His pupils are pale but anicteric. He is able to talk. He is eating dinner. His oral mucosa is moist. NECK AND CHEST: Supple. I do not detect supraclavicular or cervical lymphadenopathy. He has left sided pacemaker. He does have prominent veins in his neck and chest. He is moving air fairly well with a few rhonchi on the left with decreased breath sounds at the bases. He has a mass that measures about 4 x 4 cm just posterior to his left thoracoscopy incision. I detect no axillary or supraclavicular or cervical lymphadenopathy. ABDOMEN: Remains a bit tender but he has good bowel sounds, it is soft. EXTREMITIES: I can palpate femoral pulses. He has no peripheral edema. He has no joint effusions. ASSESSMENT AND PLAN: We are going to ask pathology to do a needle biopsy tomorrow of this mass.
[2016-07-16 22:25] VITALS: O2SAT 96
[2016-07-17 00:45] VITALS: BP 118/70; PULSE 73; TEMP 36.5; O2SAT 90
[2016-07-17] MEDS: CHECK FENTANYL PATCH PLACEMENT SCH ×4 (00:51→23:53)
[2016-07-17] MEDS: METHYLPREDNISOLONE IV 40 MG in SYRINGE 0 ML IV SCH ×3 (00:52→18:23)
[2016-07-17] MEDS: SODIUM CHLORIDE 0.9% 1000ML 1,000 ML IV SCH ×4 (02:23→22:44)
[2016-07-17 06:41] LABS: HEMATOCRIT 27.6 % (42-52); MEAN CELL VOLUME 75.4 fL (80-100); MEAN CORPUSCULAR HEMOGLOBIN 23.2 pg (25-34); MEAN CORPUSCULAR HGB CONC 30.8 g/dl (32-36); MEAN PLATELET VOLUME 10.1 fL (7.4-10.4); PLATELET COUNT 183 K/uL (130-400); RED BLOOD COUNT 3.66 M/uL (4.7-6.1); WHITE BLOOD COUNT 14.26 K/uL (4.8-10.8)
[2016-07-17 07:17] LABS: CREATININE 1.2 mg/dl (0.60-1.40)
[2016-07-17 07:18] LABS: BUN/CREATININE RATIO 48.9 (10-20); CALCIUM 11.1 mg/dl (8.5-10.1); POTASSIUM 4.1 mmol/L (3.5-5.1)
[2016-07-17 07:48] VITALS: BP 130/71; PULSE 69; TEMP 36.5; O2SAT 92
[2016-07-17] MEDS: MEGESTROL ACETATE 400 MG/10 ML UDP PO SCH ×2 (08:33→22:41)
[2016-07-17] MEDS: SUCRALFATE 1 GM/10 ML UDC PO SCH ×4 (08:33→22:40)
[2016-07-17] MEDS: PANTOprazole SOD 40 MG TAB PO SCH (08:35)
[2016-07-17] MEDS: ASCORBIC ACID 500 MG TAB PO SCH (08:35)
[2016-07-17] MEDS: HEPARIN SOD 5000 UNIT/0.5 ML CARP SQ SCH ×2 (08:40→22:43)
--- NOTE | 2016-07-17 08:51 | PULMONARY PROGRESS NOTE ---
DATE: 07/17/2016 Jacoby Mckinnon is seen today. He really has not cleared much neurologically. His calcium is down to 11.1. BUN has actually gone up from 50 to 59. His hemoglobin has gone from 10.7 to 8.5 and it may be with hydration. I discussed this case with Dr. Gregroy, as well as the house staff. I remain concerned about him having metastatic disease. He is also complaining of pain in his left upper back that he has not had before. I will set up a needle aspiration of this left chest wall mass.
--- NOTE | 2016-07-17 09:40 | ONCOLOGY CONSULTATION ---
DATE OF CONSULTATION: 07/17/2016 REASON FOR CONSULTATION: A 70-year-old gentleman with locally advanced squamous cell carcinoma of the lung. HISTORY OF PRESENT ILLNESS: Mr. Mckinnon is a pleasant, but unfortunate 70-year-old gentleman who was admitted to [facility] on July 15 with altered mental status and general decline. Mr. Mckinnon has multiple comorbid issues including chronic kidney disease, coronary artery disease and COPD. Underwent left upper lobectomy back in February 2016 for a relatively large right upper lobe lesion. Review of pathology describes a greater than 5 cm lesion with multiple lymph nodes harvested, which were negative for metastatic disease. Unfortunately, his cancer is poorly differentiated imparting a relatively high risk. Apparently had a prolonged hospitalization postoperatively and unfortunately missed initial medical oncology consultation appointments that were scheduled in May. He presented to the Emergency Department with decreased mentation and generalized decline. He was found to suffer from mild leukocytosis and hypercalcemia. Mr. Mckinnon also suffers from an abdominal aortic aneurysm and was in the process of being evaluated for surgical intervention. Unfortunately, this visit and never took place. In general, Mr. Mckinnon is a cachectic appearing gentleman with questionable mentation. He does answer simple questions, but is somewhat slow to respond. He also reports pain under the left axilla, as there appears to be a subcutaneous mass, which is new and pending biopsy. He underwent complete radiographic workup on admission. CT on admission describes post-surgical changes from the left upper lobectomy, a 4.5 cm left-sided chest wall mass suspicious for metastatic disease. A slight increase in left pleural effusion, enlarging left-sided pleural based nodules, also suspicious for metastatic disease. He was given IV fluids and bisphosphonate to corrected calcium. I have been asked to evaluate him for possible salvage treatment. PAST MEDICAL HISTORY: Significant for squamous cell carcinoma left upper lobe, enlarging abdominal aortic aneurysm, hypercholesterolemia, hypertension, gastritis, chronic renal insufficiency, coronary artery disease, myocardial infarction x2, COPD, superior vena cava syndrome. PAST SURGICAL HISTORY: Multiple pacemaker insertions, thoracoscopic left upper lobectomy, en bloc chest wall resection, midline sternotomy, again to treat pacemaker issues. SOCIAL HISTORY: The patient lives independently, he is retired. He has a [id number] smoking history, with supportive family. FAMILY HISTORY: Noncontributable. MEDICATIONS: On admission include vitamin C 500 mg p.o. q.a.m., Lipitor 40 mg p.o. at bedtime, Hygroton 25 mg p.o. q.a.m., cholecalciferol 10,000 units p.o. q.a.m., Colace 1 capsule p.o. daily, fentanyl 50 mcg q. 72 hours topically, ibuprofen p.r.n., Protonix 40 mg p.o. q. daily, probiotic 1 capsule p.o. q. daily, Carafate 1 teaspoon p.o. q.i.d., Flomax 0.4 mg p.o. q. daily, warfarin 5 mg p.o. q. daily, presently on hold, Megace 40 mg p.o. b.i.d. ALLERGIES: TO AMIDE ANESTHESIA AND INDOMETHACIN. REVIEW OF SYSTEMS: GENERAL: Somewhat limited because the patient is not a good informant. He does admit to decreased appetite and weight loss, but cannot quantify how many pounds he has lost. SKIN: No rashes or lesions. No history of dermatoses. HEENT: According to family members negative for dizziness, lightheadedness or vertigo. He has not complained of headaches. No dysphagia or sore throat. PULMONARY: Suffers from COPD. He is not short of breath. Denies dyspnea. CARDIAC: Positive for history of coronary artery disease. No current angina or palpitations. Positive for abdominal aortic aneurysm. ABDOMEN: No current abdominal pain, nausea, vomiting, diarrhea or constipation. Deferred on the remainder of review of systems. PHYSICAL EXAMINATION: GENERAL: He is a cachectic appearing 70-year-old gentleman, again does answer simple questions with repeated inquiry. He also appears to be a bit uncomfortable, specifically under the left axilla where the emerging chest wall mass resides. VITAL SIGNS: Temperature 36.5, pulse 73, respirations 18, blood pressure 118/70. SKIN: Without rash or lesion. HEENT: His head is atraumatic, normocephalic. Eyes PERRLA, EOMI. Sclerae nonicteric. No conjunctival injection. Nares patent without rhinorrhea or discharge. Throat is clear. Tongue is midline. The patient edentulous. No buccal lesions or ulcerations. NECK: Supple. LYMPH: No cervical, supraclavicular or axillary nodes. However, there is a large palpable chest wall mass just posterior to the left axilla, tender to palpation, approximate circumference 5 cm. LUNGS: Distant breath sounds. No wheezing or rhonchi or tubular breath sounds appreciated. HEART: Holosystolic loud 2/6 murmur heard in the left precordium. ABDOMEN: Soft, nontender, nondistended, without palpable hepatosplenomegaly. EXTREMITIES: No calf tenderness or swelling. No clubbing, cyanosis or edema. NEUROLOGIC: He is grossly intact. LABORATORY DATA: Sodium 144, potassium 4.1, chloride 113, carbon dioxide 21, creatinine 1.2, BUN 59, calcium 11.1. WBC count 14,260, hemoglobin 8.5, MCV 75.4, platelet count 183,000. Radiographic imaging as described in the HPI. CT scan of the abdomen and pelvis reveals no evidence of acute intraabdominal or pelvic metastatic disease, severe pulmonary edema, small left pleural effusion and pleural based nodules noted. IMPRESSION: 1. Altered mental status. 2. Hypercalcemia attributable to malignancy. 3. Microcytic anemia, probable iron deficiency. 4. Squamous cell carcinoma of the lung, probable new metastases. 5. Abdominal aortic aneurysm. 6. Hypertension. 7. BPH. 8. Hypercholesterolemia. 9. General decline/weakness. PLAN: Mr. Mckinnon is a pleasant, but unfortunate, 70-year-old gentleman who was diagnosed with a T3 poorly differentiated squamous cell carcinoma of the lung, underwent thoracoscopic left upper lobectomy back in February of 2016. Unfortunately, despite surviving the initial surgery, has had multiple comorbid issues arise in the interim. He was [facility] to be [facility], and again was hospitalized at that time. He now presents with general decline, multiple falls and cachexia with anorexia. Jacoby has now developed a left chest wall mass, both seen on clinical exam and radiographs. Biopsy is pending. Taking into consideration his clinical presentation and comorbidities, specifically his failing performance status, I do not believe the patient is ideal to pursue any sort of salvage chemotherapy. Unfortunately, patients with comorbid issues and declining performance status, notoriously do poorly, and chemotherapy for these individuals usually results in expedient and less likely to prolong life. I believe at this juncture, a palliative care consult is reasonable. I did not personally speak to Mr. Mckinnon in this regard because of his current mental status and would be inclined to discuss further with his immediate family members. I agree with current medical management, specifically appetite stimulation, pain management, and perhaps palliative radiation therapy to any painful areas that are likely due to metastatic disease. Thank you for allowing me to participate in his care. I will continue to follow periodically during his hospital stay. If you have any questions or concerns, feel free to contact me at any time.
--- NOTE | 2016-07-17 09:54 | Family Medicine Progress Note ---
Progress Note Date of Service Jul 17, 2016. Subjective Pt evaluation today including: conversation w/ patient Pain: better controlled Patient reports that pain is better today Breathing has improved. He says he's not really sure about the AAA repair anymore. He's not even sure about chemo and the aspiration today. Patients mental status continues to be somewhat altered. Constitutional: + fatigue, + weakness, + weight loss, No chills, No fever ENT: No hearing loss Respiratory: + cough, + dyspnea on exertion, + shortness of breath, No sputum, No wheezing Cardiovascular: No chest pain Abdomen: + pain, No constipation, No diarrhea, No nausea, No vomiting Musculoskeletal: + joint pain, + muscle pain Male : No dysuria, No urinary frequency Neurologic: + balance problems, + weakness Objective Physical Exam General Appearance: no apparent distress Eyes: PERRL, EOMI ENT: hearing grossly normal Neck: supple, thyroid normal Respiratory/Chest: no respiratory distress, no accessory muscle use, + decreased breath sounds (at the bases bilaterally), + pertinent finding (left axillary mass) Cardiovascular: regular rate, rhythm, no edema Abdomen: normal bowel sounds, soft, + tenderness Extremities: non-tender, normal inspection, no pedal edema 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 He was found to be hypercalcemic. Question as to whether this is a paraneoplastic process or from metastatic disease. However, there seems to be evidence of metastatic lesions of Chest CT. w.r.t to AAA, we had concerns about the procedure being high risk and in the setting of malignancy - the outcome of the procedure. However, the concern is that the AAA will likely rupture before complication from the Cancer ( ~stage 11A). His expected prognosis from the cancer is about 5 years vs. 6 mo from the AAA. Though with Oncology eval today, it seems that maybe is prognosis is worse than was orginally thought. Aspiration/biopsy planned today. This afternoon, Dr. Page and I had a long conversation with his two daughters about his prognosis. We expressed our concerns about his limited chemotherapy options and guarded prognosis of Both the AAA and the cancer. We were notified that the patient refused the biopsy for fear of pain, however, he seemed to be more altered in his mentation, so the family had a discussion about whether to proceed and they opted to try to do the biopsy again tomorrow. Dr. Deluna would be able to do this at bedside. We also explained the thoughts of the oncologist, Dr. Gregory and they understood the overall prognosis. Dr. Deluna did suggest other novel chemotherapy options that may be beneficial. This will be decided in conjunction with Dr. Gregory as well. 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 The family was receptive to this, but for now, would like to do the biopsy and continue to explore all options before deciding on comfort care. Also for now, the triple AAA repair maybe postponed in the setting of his weakness. Altered mental status 2/2 Hypercalcemia/dehydration/Hypercalcemia: - Head ct negative - Cant do an MRI brain because supposedly has pacemaker leads still implanted - Seems to be worse today repeat blood work and abg - continue hydration Moderate Hypercalcemia most likely secondary to metastatic lesions vs paraneoplastic process - Continue NSS, monitor for volume overload - PTHrp pending - continue Solu Medrol - taper down - Zoledronic Acid 4 mg IV x 1 - consider Calcitonin - Calcium - 11 today - Vit D3 held and Chlorthalidone - I&O and daily weight echo- Jan 2016 - EF 60-65% - flattened septum reflecting increased RV volume/ pressure - Mild conc LVH - no stress induced segmental wall motion abn Leukocytosis - - persists likely demargination from steroids. - blood cx - prelim negative DEVANG on CKD III - IVF as noted above - BMP stable, continue to trend - cr at baseline Microcytic anemia: Combination of chronic disease and iron deficiency? - iron studies pending. relative stable h/h over the last 6 months Squamous cell lung cancer, possible new mets - MRI brain - cannot be done due to pacemaker leads Unremoved - fentanyl for pain control - Dilaudid and morphine PRN - Case discussed with Dr. Deluna who was kind enough to see the patient and will be doing an aspiration of left axillary mass tomorrow- He too is concerned about new metastatic lesions. - Appreciate Heme/Onc recommendations: He may not be in ideal health to pursue chemotherapy. Elevated troponin - demand ischemia - troponin trended down - EKG was not suggestive of ischemia or heart strain AAA- somewhat unstable with tenderness - has repair scheduled in 2 weeks in [place] - high likelihood of rupture - family aware of risks, discussed with Dr. Deluna HTN - Chlorthalidone held - monitor bp BPH - continue tamsulosin H/O Gastritis - continue pantoprazole and Sucralfate Hypercholesterolemia - continue atorvastatin DVT prophylaxis - heparin DNR History Resident Physician Supervision Note: I was present with Dr. Novak during the history and exam. I discussed the case with the resident and agree with the findings and plan as documented in the note. Any exceptions or clarifications are listed here. Pt seen and examined at bedside. Waxing and waning mental status - oriented to self and place (somewhat) but not to time. Answering questions appropriately but delayed and has difficulty with complicated queries. Refused biopsy 2/2 concern for pain. Extensive conversation ~45 minutes with daughters (Bina and _, the POA) regarding course and goals of care, concerns re: safety and survival of procedures, potential chemotherapeutic interventions and palliative care. They state that all parties, including the patient, want to be around as long as possible, and are willing to go forward with the care, but would like to hear more from Dr. Deluna and Bri re: new chemotherapeutic options, risks and updates re: surgical intervention for AAA and would like palliative consult. General Appearance: no apparent distress, cachetic Eye Exam: bilateral eye EOMI, bilateral eye PERRL Neck: non-tender, full range of motion, supple Respiratory: no respiratory distress, decreased breath sounds (b/l bases), other (TTP of the L ribs stable from previous) Cardiovascular: normal peripheral pulses, regular rate, rhythm, no edema Gastrointestinal: normal bowel sounds, no organomegaly, other (guarding c/w AAA , will not deeply palpate) Neurologic/Psychiatric: normal mood/affect, other (oriented to self, somewhat to place. Sleepy but alert and responsive) Assessment/Plan 70 y/o male h/o COPD, CAD, SCC of the lung p/w metabolic encephalopathy in the setting of multiple issues Metabolic encephalopathy - waxing and waning - repeat PRP and ABG now, monitor closely, t/c transfer to tele/ICU Hypercalcemia - PTH < 5.5, PTHrP pending - s/p zoledronic acid - monitor BMP, continue hydration, t/c bone scan for ?metastatic dz resulting in breakdown DEVANG on CKD III - stable, continue hydration, monitor I/O Left flank pain - Bx tomorrow at bedside - find time to schedule premedication w / pain meds Elevated troponin - stable, likely 2/2 DEVANG on CKD resulting in prolonged clearance Leukocytosis - trend CBC, f/u BCx AAA - stable. CT surgery aware and input appreciated - per Dr. Deluna, the main emergency medical technician/driver for intervention at present is to repair the AAA in order to improve life expectancy HTN - close monitoring 2/2 AAA and hydration HLD DVTPPX - heparin DNR
[2016-07-17 10:51] LABS: FERRITIN 106.8 ng/ml (8.0-388.0)
[2016-07-17] MEDS: FENTANYL PATCH REMOVE & WASTE SCH (11:39)
[2016-07-17] MEDS: HYDROmorphone INJ 1 MG/ML SYR IV PRN ×2 (11:47→18:23)
[2016-07-17 15:10] VITALS: BP 126/65; PULSE 73; TEMP 36.5; O2SAT 92
[2016-07-17 16:20] VITALS: O2SAT 96
[2016-07-17 18:35] LABS: HEMATOCRIT 27.5 % (42-52); IG% 0.6 %; LYMPH ABS # 0.63 K/uL (1.2-3.4); MEAN CELL VOLUME 74.3 fL (80-100); MEAN CORPUSCULAR HEMOGLOBIN 23.5 pg (25-34); MEAN CORPUSCULAR HGB CONC 31.6 g/dl (32-36); MEAN PLATELET VOLUME 9.8 fL (7.4-10.4); MONO % 1.2 %; NEUT % 94.2 %; PLATELET COUNT 178 K/uL (130-400); WHITE BLOOD COUNT 15.62 K/uL (4.8-10.8)
[2016-07-17 18:41] LABS: ARTERIAL BLD GAS O2 SATURATION 91.6 % (90-95); ARTERIAL BLOOD GAS BASE EXCESS -4.4 mEq/L (-9-1.8); ARTERIAL BLOOD GAS HCO3 20 mmol/L (19-24); ARTERIAL BLOOD GAS PO2 71 mm/Hg (80-95); ARTERIAL BLOOD GAS pH 7.41 (7.35-7.45)
[2016-07-17 18:45] LABS: ALLEN TEST POS (POS); O2 ADMINISTRATION ROOM AIR
[2016-07-17 18:55] LABS: BUN/CREATININE RATIO 44.7 (10-20); CREATININE 1.3 mg/dl (0.60-1.40); POTASSIUM 3.6 mmol/L (3.5-5.1)
[2016-07-17 18:59] LABS: ANISOCYTOSIS PRESENT; COMPLETE YES
[2016-07-17] MEDS: ATORVASTATIN 40 MG TAB PO SCH (22:41)
[2016-07-17] MEDS: LACTOBACILLUS ACIDOPHILUS (FLORANEX) TAB PO SCH (22:42)
[2016-07-17] MEDS: TAMSULOSIN HCL 0.4 MG CAP PO SCH (22:42)
[2016-07-17] MEDS: DOCUSATE SODIUM 100 MG CAP PO SCH (22:42)
[2016-07-17 23:13] VITALS: BP 139/84; PULSE 84; TEMP 36.5; O2SAT 92
[2016-07-18] MEDS: METHYLPREDNISOLONE IV 40 MG in SYRINGE 0 ML IV SCH ×3 (00:49→16:57)
[2016-07-18] MEDS: SODIUM CHLORIDE 0.9% 1000ML 1,000 ML IV SCH ×3 (05:24→16:56)
[2016-07-18] MEDS: HYDROmorphone INJ 1 MG/ML SYR IV PRN ×4 (05:44→19:01)
[2016-07-18 05:58] LABS: HEMATOCRIT 28.5 % (42-52); MEAN CELL VOLUME 75.6 fL (80-100); MEAN CORPUSCULAR HEMOGLOBIN 23.6 pg (25-34); MEAN CORPUSCULAR HGB CONC 31.2 g/dl (32-36); MEAN PLATELET VOLUME 9.7 fL (7.4-10.4); PLATELET COUNT 202 K/uL (130-400); RED BLOOD COUNT 3.77 M/uL (4.7-6.1); WHITE BLOOD COUNT 16.77 K/uL (4.8-10.8)
[2016-07-18 06:30] LABS: BUN/CREATININE RATIO 40.4 (10-20); CALCIUM 9.8 mg/dl (8.5-10.1); CREATININE 1.3 mg/dl (0.60-1.40); POTASSIUM 3.4 mmol/L (3.5-5.1)
[2016-07-18 08:12] VITALS: O2SAT 98
[2016-07-18 08:18] VITALS: BP 178/98; PULSE 98; TEMP 36.6; O2SAT 98
[2016-07-18] MEDS: CHECK FENTANYL PATCH PLACEMENT SCH ×2 (09:00→16:55)
--- NOTE | 2016-07-18 09:04 | Family Medicine Progress Note ---
Progress Note Date of Service Jul 18, 2016. Subjective Pt evaluation today including: conversation w/ patient Pain: 8/10 Voiding: no voiding problems Patient continues to be somewhat disoriented FOllows simple commands Complains of pain in abdomen and left axilla Constitutional: + fatigue, + weakness, No chills, No fever Respiratory: + dyspnea on exertion, + shortness of breath, No cough, No sputum, No wheezing Cardiovascular: No chest pain Abdomen: + pain, No nausea, No vomiting Male : No dysuria, No urinary frequency Psychiatric: + anhedonism, + depression symptoms Objective Physical Exam General Appearance: no apparent distress Eyes: PERRL, EOMI Neck: supple, no adenopathy Respiratory/Chest: no respiratory distress, no accessory muscle use, + decreased breath sounds Cardiovascular: regular rate, rhythm, no edema, + systolic murmur Abdomen: normal bowel sounds, soft, + tenderness (epigastric) Extremities: non-tender Neurologic/Psychiatric: no motor/sensory deficits, + depressed affect, + disoriented Assessment and Plan This is a 70 y/o M with a 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 He was found to be hypercalcemic. Question as to whether this is a paraneoplastic process or from metastatic disease. However, there seems to be evidence of metastatic lesions of Chest CT. Please see yesterdays note for discussions with family. Patient underwent Biopsy today; confirmed SCLC in the metastatic lesion. At the moment, the best course of action is being determined in conjunction with Dr. Deluna and Dr. Gregory. We continue encouraged discussion of goals of care for skilled nursing and thoughts about palliative care/hospice. Also for now, the triple AAA repair maybe postponed in the setting of his weakness. Metabolic encephalopathy now likely 2/2 metastatic SCLC - Initially he was dehydrated and had hypercalcemia but this has resolved with hydration leading us to believe that this is metabolic Encephalopathy is from the Cancer - Though Neurology is consulted for further eval - Repeat U/A is negative - Calcium has normalized. but will likely start to rise because of the underlying malignancy - Head ct negative - Cant do an MRI brain because supposedly has pacemaker leads still implanted - Seems to be about the same with mentation - repeat blood work and abg relatively normal. - continue hydration - likely no infectious process at this time. Moderate Hypercalcemia most likely secondary to metastatic lesions vs paraneoplastic process - Continue NSS, monitor for volume overload - PTHrp pending - continue Solu Medrol - taper down - Zoledronic Acid 4 mg IV x 1 - consider Calcitonin - Calcium - 9,8 today - Vit D3 held and Chlorthalidone - I&O and daily weight echo- Jan 2016 - EF 60-65% - flattened septum reflecting increased RV volume/ pressure - Mild conc LVH - no stress induced segmental wall motion abn Leukocytosis - - persists likely demargination from steroids. - blood cx - negative DEVANG on CKD III - at baseline - IVF as noted above - BMP stable, continue to trend - cr at baseline Microcytic anemia: - iron studies -Combination of chronic disease and iron deficiency relative stable h/h over the last 6 months Squamous cell lung cancer, possible new mets - MRI brain - cannot be done due to pacemaker leads Unremoved - fentanyl for pain control - Dilaudid and morphine PRN - Case discussed with Dr. Deluna - Biopsy done today, confirmed SCLC in the metastatic lesion. - Appreciate Heme/Onc recommendations: LIkely not a candidate for chemo given type of Cancer and stage Elevated troponin - demand ischemia - troponin trended down - EKG was not suggestive of ischemia or heart strain AAA- somewhat unstable with tenderness - has repair scheduled in 2 weeks in [place] - high likelihood of rupture - family aware of risks, discussed with Dr. Deluna - on hold for now. HTN - Chlorthalidone held due to hypercalcemia - monitor bp BPH - continue tamsulosin H/O Gastritis - continue pantoprazole and Sucralfate Hypercholesterolemia - continue atorvastatin DVT prophylaxis - heparin DNR History Resident Physician Supervision Note: I was present with Dr. Novak during the history and exam. I discussed the case with the resident and agree with the findings and plan as documented in the note. Any exceptions or clarifications are listed here. Pt seen and examined at bedside. Pain is stable at present at 8/10 which is improved by pain medication. Mental status is stable, presently AAOx2. Willing to do biopsy today. General Appearance: mild distress, cachetic Respiratory: decreased breath sounds, rhonchi (b/l bases), other (TTP over sternum and L ribs which reproduces pain) Cardiovascular: normal peripheral pulses, regular rate, rhythm, no edema, no murmur Gastrointestinal: normal bowel sounds, soft, no organomegaly, other (palpable TTP pulsatile mass not re-palpated today but visibly stable) Neurologic/Psychiatric: alert, normal mood/affect Assessment/Plan 70 y/o male h/o COPD, CAD, SCC of the lung p/w metabolic encephalopathy in the setting of multiple issues Metabolic encephalopathy - waxing and waning - neurology consult per recommendation Hypercalcemia - PTH < 5.5, PTHrP pending - s/p zoledronic acid - resolved - continue hydration - bone scan w/ rib lesions likely contributing Metastatic disease of the ribs - radiology/oncology consultation for ? palliative radiation DEVANG on CKD III - stable, continue hydration, monitor I/O Left flank pain - Bx today shows SCC - rad onc as above AAA - stable. CT surgery aware and input appreciated - per Dr. 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 Gregory and Regi re: next steps and overarching goals of care. Dr. Gregory feels that any salvage chemotherapy, novel or [place] based, would likely result in a poor outcome with the patient's present lack of reserve and will re- assess in light of palliative rad/onc related goals tomorrow. Dr. Deluna, s/p Bx, has discussed the present state of findings with the patient and requested neurologic evaluation for the persistent metabolic encephalopathy since the electrolyte abnormalities have resolved.
--- NOTE | 2016-07-18 09:30 | SURGERY PROGRESS NOTE ---
DATE: 07/18/2016 Mr. Mckinnon was seen today. He is still confused, although a bit better. His abdomen is a bit tender. He is also tender over his chest. There is no erythema. The patient refused biopsy under ultrasound yesterday. He is a bit confused. I talked to him today, he is agreeable to having the pathologist come to bedside to perform this fine needle aspiration of his left chest wall mass. I will be with him when we do that later this afternoon. He is in agreement currently; however, his mental status is such that I am concerned that he may change his mind. I told him it is extremely important that we obtain a diagnosis.
[2016-07-18] MEDS: SUCRALFATE 1 GM/10 ML UDC PO SCH ×4 (09:37→21:45)
[2016-07-18] MEDS: MEGESTROL ACETATE 400 MG/10 ML UDP PO SCH ×2 (09:37→21:47)
[2016-07-18] MEDS: ASCORBIC ACID 500 MG TAB PO SCH (09:38)
[2016-07-18] MEDS: PANTOprazole SOD 40 MG TAB PO SCH (09:38)
[2016-07-18] MEDS: SODIUM CHLORIDE 0.9% IV SCH ×2 (09:39→10:54)
[2016-07-18] MEDS: WTR IV SCH ×2 (09:39→10:54)
[2016-07-18] MEDS: POTASSIUM CHLR IV SCH ×2 (09:39→10:54)
[2016-07-18] MEDS: HEPARIN SOD 5000 UNIT/0.5 ML CARP SQ SCH ×2 (09:40→21:51)
[2016-07-18 10:34] VITALS: BP 152/83
[2016-07-18 12:54] LABS: ALKALINE PHOSPHATASE 58 U/L (45-117); ALT/SGPT 14 U/L (12-78); AST/SGOT 14 U/L (15-37)
[2016-07-18 14:41] LABS: URINE APPEARANCE CLEAR (CLEAR); URINE BILIRUBIN NEG (NEG); URINE COLOR YELLOW; URINE NITRITE NEG (NEG); URINE SPECIFIC GRAVITY 1.015 (1.000-1.030); UROBILINOGEN NEG (NEG)
[2016-07-18 14:47] LABS: MANUAL MICROSCOPIC REQUIRED? NO; REVIEW REQ? NO
--- NOTE | 2016-07-18 15:42 | DIAGNOSTIC IMAGING REPORT ---
WHOLE BODY BONE SCAN HISTORY: Metastatic disease Bone Mets RADIOTRACER: 26.1 mCi Tc-99m MDP STUDY/IMAGES: Planar anterior and posterior whole body imaging was performed 3 hours following the intravenous administration of radiotracer. COMPARISON: CT chest abdomen and pelvis dated 07/15/2016 FINDINGS: Operative changes consistent with resection of the left fifth rib. Mottled activity characteristics of the ribs bilaterally base possibly metastatic disease. The spine specifically shows no well-defined metastatic change by bone scan criteria. There is scattered moderate degenerative changes of the shoulders and to a lesser extent hips. Bilateral renal activity is present. IMPRESSION: 1. Findings consistent with diffuse bilateral rib metastatic change 2. Operative resection of at least one left upper rib 3. Remainder the examination shows mild scattered degenerative activity Electronically signed by: Juan Hansen M.D. 07/18/2016 3:41 PM Dictated Date/Time: 07/18/2016 3:36 PM
[2016-07-18] MEDS ORDERED: LORAZEPAM 2 MG/ML 1 ML VIAL IV ONE (15:45)
[2016-07-18] MEDS ORDERED: LIDOCAINE HCL 1% 20 ML VIAL ONE (16:04)
[2016-07-18 16:07] VITALS: BP 144/86; PULSE 67; TEMP 36.4; O2SAT 94
[2016-07-18 16:10] VITALS: O2SAT 96
[2016-07-18] MEDS ORDERED: LORAZEPAM INJ 0.5 MG in SYRINGE 0.75 ML IV ONE (16:15)
--- NOTE | 2016-07-18 17:18 | Family Medicine Progress Note ---
Progress Note Date of Service Jul 18, 2016.
[2016-07-18] MEDS: DOCUSATE SODIUM 100 MG CAP PO SCH (21:45)
[2016-07-18] MEDS: LACTOBACILLUS ACIDOPHILUS (FLORANEX) TAB PO SCH (21:45)
[2016-07-18] MEDS: ATORVASTATIN 40 MG TAB PO SCH (21:45)
[2016-07-18] MEDS: TAMSULOSIN HCL 0.4 MG CAP PO SCH (21:46)
[2016-07-19] MEDS ORDERED: MoRPHine SULFATE 5 MG/0.25 ML UDP PO SCH
[2016-07-19] MEDS: CHECK FENTANYL PATCH PLACEMENT SCH ×3 (00:18→16:00)
[2016-07-19] MEDS: SODIUM CHLORIDE 0.9% 1000ML 1,000 ML IV SCH ×3 (00:33→14:05)
[2016-07-19] MEDS: HYDROmorphone INJ 1 MG/ML SYR IV PRN ×3 (00:33→14:06)
[2016-07-19] MEDS: METHYLPREDNISOLONE IV 40 MG in SYRINGE 0 ML IV SCH ×3 (00:33→16:33)
[2016-07-19 00:37] VITALS: BP 165/83; PULSE 85; TEMP 36.5; O2SAT 92
[2016-07-19] MEDS: SUCRALFATE 1 GM/10 ML UDC PO SCH ×3 (06:42→16:00)
[2016-07-19 06:45] LABS: HEMATOCRIT 28.7 % (42-52); MEAN CELL VOLUME 76.3 fL (80-100); MEAN CORPUSCULAR HEMOGLOBIN 23.1 pg (25-34); MEAN CORPUSCULAR HGB CONC 30.3 g/dl (32-36); MEAN PLATELET VOLUME 9.9 fL (7.4-10.4); PLATELET COUNT 156 K/uL (130-400); RED BLOOD COUNT 3.76 M/uL (4.7-6.1); WHITE BLOOD COUNT 12.97 K/uL (4.8-10.8)
[2016-07-19] MEDS ORDERED: POLYETHYLENE (MIRALAX) 17 GM PACK PO SCH (08:00)
[2016-07-19 08:08] VITALS: BP 146/83; PULSE 103; TEMP 36.5; O2SAT 91
[2016-07-19 08:25] LABS: CALCIUM 8.5 mg/dl (8.5-10.1); CREATININE 1.2 mg/dl (0.60-1.40); POTASSIUM 3.4 mmol/L (3.5-5.1)
[2016-07-19] MEDS: PANTOprazole SOD 40 MG TAB PO SCH (08:31)
[2016-07-19] MEDS: ASCORBIC ACID 500 MG TAB PO SCH (08:31)
[2016-07-19] MEDS: MEGESTROL ACETATE 400 MG/10 ML UDP PO SCH (08:32)
[2016-07-19] MEDS: FENTANYL 50 MCG/HR TDSY TD SCH (08:36)
[2016-07-19] MEDS: FENTANYL PATCH REMOVE & WASTE SCH (08:37)
[2016-07-19] MEDS: HEPARIN SOD 5000 UNIT/0.5 ML CARP SQ SCH (08:37)
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
[2016-07-19] MEDS: POTASSIUM CHLR 10 MEQ / WTR 10 MEQ in PREMIXED WATER 100 ML IV SCH ×2 (09:18→10:23)
--- NOTE | 2016-07-19 09:45 | Neurology Consultation ---
Neurology Consultation Date of Consultation: Jul 19, 2016. Attending Physician: Kannan Page MD Primary Care Physician: Joyce Mustafa C.R.N.P. Reason for Consultation: Consultation for altered mental status with history of metastatic lung cancer History of Present Illness Source: patient, hospital records This is a 70-year-old male presents with altered mental status. Appears to have been slowly progressive but worse in the last few days. The patient does have multiple ongoing medical issues. He does report that he has occasional headaches but it is not clear to me whether they're easily relieved with over- the-counter NSAIDs or not. History taking is difficult secondary to mental status. Patient seems unable or unwilling to answer some questions. Denies any focal numbness or weakness. Denies any strokelike symptoms or seizures. Sounds like at baseline the patient is fairly sedentary and mostly bedbound. CT of the head from the reported images were reviewed and unremarkable. Patient is unable to get an MRI due to residual cardiac pacer leads still implanted Labs were reviewed. The patient was noted to have elevated calcium on admission that was corrected. ESR was elevated at 84 WBCs elevated with a range of 16-12 Blood gas on the first was unremarkable Ammonia level within normal limits UA unremarkable Magnesium 1.8 Phos 2.6 Patient is mildly anemic There is no signs on one imaging concerning for possible metastatic disease. Severe emphysema noted on imaging Past Medical/Surgical History Medical Problems: (1) Abnormal white blood cell count Status: Acute (2) Altered mental status Status: Acute (3) Altered mental status Status: Acute (4) Fracture of rib of left side Status: Acute (5) Frequent falls Status: Acute (6) Generalized weakness Status: Acute (7) Hypokalemia Status: Acute (8) Lung cancer Status: Acute (9) Precordial chest pain Status: Acute Multiple aneurysms and AAA History of PE on Coumadin COPD CAD status post CABG, ID, status post multiple pacemaker replacements and leads still implanted Chronic kidney disease Dyslipidemia Squamous lung cell carcinoma status post left upper lobe lobectomy and concerns for metastatic disease BPH Family History Family history of CAD and breast cancer Social History Patient is a former smoker Smokeless Tobacco Use: Yes Alcohol Use: occasionally Drug Use: none Marital Status: single Housing Status: lives with family Occupation Status: retired Allergies Coded Allergies: Anesthetics, Amide (Unverified Allergy, Unknown, UNKNOWN REACTION TO UNKNOWN "ANESTHESIA", 06/03/16) Indomethacin (Verified Allergy, Unknown, UNKNOEN, 07/15/16) Current Inpatient Medications Current Inpatient Medications Medications (Trade) Dose Ordered Sig/Mckenzie Route Start Time Stop Time Status Last Admin Dose Admin Methylprednisolone Sodium Succinate/ Syringe (Solu-Medrol IV/ Syringe) 0.64 ml @ 1.5 mls/min Q8H IV 07/16/16 01:00 08/15/16 00:59 07/19/16 08:33 1.5 MLS/MIN Ascorbic Acid (Vitamin C Tab) 500 mg QAM PO 07/16/16 08:00 08/15/16 08:59 07/19/16 08:31 500 MG Atorvastatin Calcium (Lipitor Tab) 40 mg HS PO 07/16/16 21:00 08/15/16 20:59 07/18/16 21:45 40 MG Docusate Sodium (coLACE CAP) 100 mg HS PO 07/16/16 21:00 08/15/16 20:59 07/18/16 21:45 100 MG Fentanyl (Duragesic Patch) 50 mcg Q72H TD 07/16/16 08:00 07/30/16 07:59 07/19/16 08:36 50 MCG Pantoprazole Sodium (Protonix Tab) 40 mg DAILY PO 07/16/16 08:00 08/15/16 08:59 07/19/16 08:31 40 MG Tamsulosin HCl (Flomax Cap) 0.4 mg HS PO 07/16/16 21:00 08/15/16 20:59 07/18/16 21:46 0.4 MG Lactobacillus Acidophilus (Floranex Tab) 4 tab HS PO 07/16/16 21:00 08/15/16 20:59 07/18/16 21:45 4 TAB Megestrol Acetate (Megace Susp) 400 mg BID PO 07/16/16 09:00 08/15/16 08:59 07/19/16 08:32 400 MG Acetaminophen (Tylenol Tab) 650 mg Q4H PRN PO 07/15/16 22:30 08/14/16 22:29 07/16/16 02:05 650 MG Al Hydrox/Mg Hydrox/Simethicone (Maalox Max Susp) 15 ml Q4H PRN PO 07/15/16 22:30 08/14/16 22:29 Ondansetron HCl (Zofran Inj) 4 mg Q6H PRN IV 07/15/16 22:30 08/14/16 22:29 07/19/16 00:47 4 MG Heparin Sodium (Porcine) (Heparin Sq 5000 Unit/0.5ml) 5,000 unit Q12H SQ 07/16/16 09:00 08/15/16 08:59 07/19/16 08:37 5,000 UNIT Miscellaneous (Fentanyl Patch Remove & Waste) 1 ea Q72H N/A 07/16/16 07:59 08/15/16 07:58 07/19/16 08:37 1 EA Miscellaneous Information (Check Fentanyl Patch Placement) 1 ea QS N/A 07/16/16 16:00 08/15/16 15:59 07/19/16 08:32 1 EA Hydromorphone HCl (Dilaudid Inj) 1 mg Q4 PRN IV 07/16/16 08:15 07/30/16 08:14 07/19/16 08:36 1 MG Morphine Sulfate 2 mg 2 mg Q4 PRN IV 07/16/16 08:15 07/30/16 08:14 Sodium Chloride (Nss 1000ml) 1,000 ml @ 150 mls/hr Q6H40M IV 07/16/16 19:30 08/15/16 19:29 07/19/16 06:44 150 MLS/HR Sucralfate (Carafate Susp) 1 gm QID@0700,1100,1600,2100 PO 07/18/16 11:00 08/17/16 10:59 07/19/16 06:42 1 GM Polyethylene 17 gm 17 gm DAILY PO 07/19/16 08:00 08/18/16 07:59 07/19/16 08:31 17 GM Potassium Chloride/Prmx (Kcl 10 Meq / Wtr/Premixed Water) 100 ml @ 100 mls/hr 0900,1000 IV 07/19/16 09:00 07/19/16 12:00 07/19/16 09:18 100 MLS/HR Review of Systems Review of systems was difficult to obtain secondary to mental status. The patient does report some occasional headaches. Denies any other pain. Denies visual changes or focal neurological deficits Physical Exam Vital Signs (Past 24 Hrs): Date Time Temp Pulse Resp B/P Pulse Ox O2 Delivery O2 Flow Rate FiO2 07/19/16 08:08 36.5 103 22 146/83 91 2.0 07/19/16 00:37 36.5 85 20 165/83 92 Nasal Cannula 2.0 07/19/16 00:30 Nasal Cannula 2.0 07/18/16 16:10 96 Room Air 07/18/16 16:07 36.4 67 18 144/86 94 Room Air 07/18/16 10:34 152/83 Gen.: Patient is alert and sitting in bed, in no acute distress. HEENT: Normocephalic /atraumatic, no scleral icterus Heart: Regular rate and rhythm. significant systolic murmur Extremities: No gross deformities or rashes noted Neurological examination: Mental status: Patient is alert and oriented to place, month, and year. Attention and concentration were poor. Personal history was limited. Speech is fluent without any dysarthria or aphasia noted Cranial nerve: Funduscopic examination was unremarkable but limited examination. Pupils equally round and reactive to light. Extraocular muscles intact without nystagmus. No facial asymmetry noted. Facial sensation intact. Tongue is midline. Good palatal elevation. Good shoulder shrug bilaterally. Hearing grossly intact to voice. Strength: 5/5 both proximal and distally in all extremities. There is no arm drift. Sensation: Grossly intact to light touch in all extremities. Deep tendon reflexes: +1 in bilateral biceps, brachioradialis and patellar. Toes were equivocal to plantar stimulation Coordination: Patient had good finger to nose without dysmetria Station within the bed was normal Laboratory Results Past 24 Hours: 07/19/16 05:55 07/19/16 05:55 Test 07/18/16 14:00 07/19/16 05:55 Urine Color YELLOW Urine Appearance CLEAR (CLEAR) Urine pH 5.0 (4.5-7.5) Urine Specific [place] 1.015 (1.000-1.030) Urine Protein TRACE (NEG) Urine Glucose (UA) NEG (NEG) Urine Ketones NEG (NEG) Urine Occult Blood NEG (NEG) Urine Nitrite NEG (NEG) Urine Bilirubin NEG (NEG) Urine Urobilinogen NEG (NEG) Urine Leukocyte Esterase NEG (NEG) Urine WBC (Auto) 1-5 /hpf (0-5) Urine RBC (Auto) 0-4 /hpf (0-4) Urine Hyaline Casts (Auto) 1-5 /lpf (0-5) Urine Epithelial Cells (Auto) 5-10 /lpf (0-5) Urine Bacteria (Auto) NEG (NEG) Red Blood Count 3.76 M/uL (4.7-6.1) Mean Corpuscular Volume 76.3 fL (80-100) Mean Corpuscular Hemoglobin 23.1 pg (25-34) Mean Corpuscular Hemoglobin Concent 30.3 g/dl (32-36) RDW Standard Deviation 57.3 fL (36.4-46.3) RDW Coefficient of Variation 20.6 % (11.5-14.5) Mean Platelet Volume 9.9 fL (7.4-10.4) Anion Gap 10.0 mmol/L (3-11) Est Creatinine Clear Calc Drug Dose 47.3 ml/min Estimated GFR () 70.1 Estimated GFR (Non- 60.5 BUN/Creatinine Ratio 38.0 (10-20) Calcium Level 8.5 mg/dl (8.5-10.1) Thyroid Stimulating Hormone (TSH) 0.396 uIu/ml (0.300-4.500) Imaging As noted above in history of present illness Impression This is a 70-year-old male with likely metabolic encephalopathy secondary to multiple medical processes. No signs of primary neurological disorder that would cause encephalopathy such as seizure or stroke. Plan EEG was ordered by myself this morning for further evaluation of encephalopathy. EEG showed generalized slowing consistent with encephalopathy but no epileptiform discharges or electrographic seizures. TSH was added on to blood work this morning for further evaluation of encephalopathy. TSH was within normal limits. If desired, could also consider checking a B12 level (with recommended level above 400) and the thiamine level for further evaluation of nutritional deficiencies that can cause encephalopathy. Patient is unable to get an MRI of the brain due to cardiac pacer lead still implanted. No further neurological recommendations or workup at this time. Thank you for allowing me to participate in this patient's care. If there is any questions or concerns, feel free to call/page me
--- NOTE | 2016-07-19 09:48 | EEG Procedure Note ---
EEG Procedure Note Date of Service Jul 19, 2016. Start / End Times Start Time: 7:42 AM End Time: 8:02 AM Referring Physician Suzie Lentz History This is a 70-year-old male who presents with acute on chronic mental status changes. EEG for further evaluation of possible seizure etiology. Home Medication List Scheduled Ascorbic Acid (Vitamin C), 500 MG PO QAM Atorvastatin (Lipitor), 40 MG PO HS Chlorthalidone (Hygroton), 25 MG PO QAM Cholecalciferol (Vitamin D3), 10,000 UNIT PO QAM Docusate Sodium (Docusate Sodium), 1 CAP PO HS Fentanyl (Duragesic), 50 MCG TD CQ72HR Ibuprofen (Advil), PO PRN UD Megestrol Acetate (Megace), 400 MG PO BID Pantoprazole (Protonix), 40 MG PO DAILY Probiotic Product (Probiotic), 1 CAP PO HS Sucralfate (Carafate), 1 TSP PO QID Tamsulosin Hcl (Flomax), 0.4 MG PO HS Warfarin Sod (Jantoven), 5 MG PO ON HOLD Scheduled PRN Doxylamine Succinate (Sleep) (Unisom), 50 MG PO HS PRN for Sleep Inpatient Medication List Current Inpatient Medications Medications (Trade) Dose Ordered Sig/Mckenzie Route Start Time Stop Time Status Last Admin Dose Admin Methylprednisolone Sodium Succinate/ Syringe (Solu-Medrol IV/ Syringe) 0.64 ml @ 1.5 mls/min Q8H IV 07/16/16 01:00 08/15/16 00:59 07/19/16 08:33 1.5 MLS/MIN Ascorbic Acid (Vitamin C Tab) 500 mg QAM PO 07/16/16 08:00 08/15/16 08:59 07/19/16 08:31 500 MG Atorvastatin Calcium (Lipitor Tab) 40 mg HS PO 07/16/16 21:00 08/15/16 20:59 07/18/16 21:45 40 MG Docusate Sodium (coLACE CAP) 100 mg HS PO 07/16/16 21:00 08/15/16 20:59 07/18/16 21:45 100 MG Fentanyl (Duragesic Patch) 50 mcg Q72H TD 07/16/16 08:00 07/30/16 07:59 07/19/16 08:36 50 MCG Pantoprazole Sodium (Protonix Tab) 40 mg DAILY PO 07/16/16 08:00 08/15/16 08:59 07/19/16 08:31 40 MG Tamsulosin HCl (Flomax Cap) 0.4 mg HS PO 07/16/16 21:00 08/15/16 20:59 07/18/16 21:46 0.4 MG Lactobacillus Acidophilus (Floranex Tab) 4 tab HS PO 07/16/16 21:00 08/15/16 20:59 07/18/16 21:45 4 TAB Megestrol Acetate (Megace Susp) 400 mg BID PO 07/16/16 09:00 08/15/16 08:59 07/19/16 08:32 400 MG Acetaminophen (Tylenol Tab) 650 mg Q4H PRN PO 07/15/16 22:30 08/14/16 22:29 07/16/16 02:05 650 MG Al Hydrox/Mg Hydrox/Simethicone (Maalox Max Susp) 15 ml Q4H PRN PO 07/15/16 22:30 08/14/16 22:29 Ondansetron HCl (Zofran Inj) 4 mg Q6H PRN IV 07/15/16 22:30 08/14/16 22:29 07/19/16 00:47 4 MG Heparin Sodium (Porcine) (Heparin Sq 5000 Unit/0.5ml) 5,000 unit Q12H SQ 07/16/16 09:00 08/15/16 08:59 07/19/16 08:37 5,000 UNIT Miscellaneous (Fentanyl Patch Remove & Waste) 1 ea Q72H N/A 07/16/16 07:59 08/15/16 07:58 07/19/16 08:37 1 EA Miscellaneous Information (Check Fentanyl Patch Placement) 1 ea QS N/A 07/16/16 16:00 08/15/16 15:59 07/19/16 08:32 1 EA Hydromorphone HCl (Dilaudid Inj) 1 mg Q4 PRN IV 07/16/16 08:15 07/30/16 08:14 07/19/16 08:36 1 MG Morphine Sulfate 2 mg 2 mg Q4 PRN IV 07/16/16 08:15 07/30/16 08:14 Sodium Chloride (Nss 1000ml) 1,000 ml @ 150 mls/hr Q6H40M IV 07/16/16 19:30 08/15/16 19:29 07/19/16 06:44 150 MLS/HR Sucralfate (Carafate Susp) 1 gm QID@0700,1100,1600,2100 PO 07/18/16 11:00 08/17/16 10:59 07/19/16 06:42 1 GM Polyethylene 17 gm 17 gm DAILY PO 07/19/16 08:00 08/18/16 07:59 07/19/16 08:31 17 GM Potassium Chloride/Prmx (Kcl 10 Meq / Wtr/Premixed Water) 100 ml @ 100 mls/hr 0900,1000 IV 07/19/16 09:00 07/19/16 12:00 07/19/16 09:18 100 MLS/HR Description This is a 21 electrode EEG with a single channel dedicated to limited EKG. The electrodes were placed in accordance with the International 10-20 system. At the start of this recording the patient was in reported altered mental status. Background was poorly organized with no anterior to posterior gradient. Background was composed of symmetric moderate amplitude 5-6 Hz theta frequencies with intermixed alpha frequencies. Hyperventilation was not done. Photic stimulation at various frequencies did not produce any abnormalities. There was no state changes or sleep transients. Interpretation This is an abnormal routine EEG secondary to moderate diffuse background disorganization and slowing. There was no electrographic seizures or epileptiform discharges. Clinical Correlation This EEG indicates moderate encephalopathy of nonspecific etiology.
--- NOTE | 2016-07-19 09:56 | HEME/ONC PROGRESS NOTE ---
DATE: 07/19/2016 DIAGNOSES: 1. 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 2. Metastatic nonsmall cell lung cancer. 3. Altered mental status. 4. Chronic pain syndrome secondary to bony metastatic disease. HOSPITAL COURSE: Mr. Mckinnon is a pleasant but unfortunate 70-year-old gentleman admitted to [facility] on 07/15/2016 with general decline and altered mental status. He was found to have significantly elevated calcium level which was effectively treated with bisphosphonates. Mentally, he is making some improvement. He still has considerable pain issues and a bone scan done yesterday confirms presence of diffuse bilateral rib metastatic disease which is most likely the cause of his ongoing pain. Jacoby's ambulation has been minimal and requires assistance. His appetite is a little bit better but I still believe his performance status is overall suboptimal. PHYSICAL EXAMINATION: GENERAL: He is in no acute distress. VITAL SIGNS: Temperature 36.5, pulse 103, respirations 22, blood pressure 146/83. SKIN: Without rash or lesion. HEENT: Oral mucosa without erythema or ulceration. NECK: Supple. HEART: Regular rate and rhythm. No clicks, rubs, or gallops. Holosystolic loud 2/6 murmur. LUNGS: Distant breath sounds without wheezing or rhonchi. ABDOMEN: Soft, nontender, nondistended. EXTREMITIES: No calf tenderness or swelling. NEUROLOGIC: Again, mentation is improved. He is oriented x3. LABORATORY DATA: Sodium 146, potassium 3.4, chloride 115, carbon dioxide 21, creatinine 1.2, BUN 46, calcium 8.5. WBC count 12,970, hemoglobin 8.7, platelet count 156,000. IMPRESSION: 1. Metastatic nonsmall cell lung cancer. 2. Altered mental status. 3. 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 4. Microcytic anemia. 5. Abdominal aortic aneurysm. PLAN: I saw Mr. Mckinnon at bedside today. Mentally, he seems to be a bit better. Neurology was in to see him earlier and feels his encephalopathy is most likely metabolic. Again, from my standpoint, I believe palliation is probably the optimal route of treatment. I asked the primary service to consult radiation oncology to provide palliative radiation to his rib cage. I discussed informally chemotherapeutic options with Dr. Deluna. I still believe his performance status is suboptimal and chemo at this juncture would probably be more harmful than of benefit. I have no issue with following up with Mr. Mckinnon once he is discharged from hospital to revisit the possibility of salvage therapy should he improve. Thank you very much for allowing me to participate in his care. TOPHER
--- NOTE | 2016-07-19 11:04 | Palliative Care Consultation ---
Consultation Date of Consultation: Jul 19, 2016. Requesting Physician: Dr. Novak Attending Physician: Dr. Page, Dr. Novak Reason for Consultation: Goals of care History of Present Illness This 70 year old male patient presented four days ago to ED with complaints of one week of increased weakness, decreased appetite, and increased confusion. 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 On presentation for this admission, calcium was 13.6. He received a dose of alendronate and IVF, calcium now improved to 8.5. The patient has a known, unstable AAA with high risk of rupture , and during his last admission, he and his daughters decided to pursue AAA repair at [facility]. Per the daughter/POA, Florence, the surgeon in [place] was not comfortable doing the surgery given the patient's high risk and overall condition, so he was sent home. Once home, the patient saw Dr. Deluna who referred patient to a surgeon in [place], [place], and surgical repair of the AAA was scheduled for two weeks from now. The patient was living at home with Florence and her . They were caring for him a round the clock, he was only home alone for maybe an hour or two during the day. During the hour that Florence went to work and her was not home yet, the patient fell, and that's what prompted this hospital visit. He has been declining and overall deconditioning. Florence and the patient both want the patient to be at home and be comfortable. Radiation oncology was in to see patient and spoke with the patient and Florence. They would like to proceed with palliative radiation, Florence is going to talk to her sisters before making final decision. Palliative care consulted to establish goals of care. I met with Florence and the patient in his room. Patient states his pain is 10/10 , he is in no distress, however. He does have palpable masses on his left side/ rib-area that are causing his pain. Florence and the patient both confirmed that the goal is for comfort and for patient to be at home. They have decided to not go through with the AAA surgery as well. We discussed hospice and their role. Florence states that she feels she can handle caring for the patient at home and they are avoiding a nursing facility at all costs. A referral will be made to Home Nursing Agency by rn field case manager. Past Medical/Surgical History Medical History: COPD CKD CAD Squamous cell carcinoma of lung [place] x2 BPH Hypercholesterolemia Hypertension AAA gastritis Surgical History: CABG Left upper lobectomy Social History Smoking Status: Former Smoker History of Alcohol Use: No Drug Use: none Marital Status: single Housing Status: lives with family Occupation Status: retired Review of Systems Constitutional: + problem reported ("Not doing well at home."), + weakness Respiratory: + cough, + dyspnea on exertion, No shortness of breath, No sputum Cardiac: No chest pain, No edema Abdomen: + pain, + problem reported (decreased appetite), No nausea, No vomiting Male : No problem reported Psychiatric: No anxiety Allergies Coded Allergies: Anesthetics, Amide (Unverified Allergy, Unknown, UNKNOWN REACTION TO UNKNOWN "ANESTHESIA", 06/03/16) Indomethacin (Verified Allergy, Unknown, UNKNOEN, 07/15/16) Medications Current Inpatient Medications Medications (Trade) Dose Ordered Sig/Mckenzie Route Start Time Stop Time Status Last Admin Dose Admin Methylprednisolone Sodium Succinate/ Syringe (Solu-Medrol IV/ Syringe) 0.64 ml @ 1.5 mls/min Q8H IV 07/16/16 01:00 08/15/16 00:59 07/19/16 08:33 1.5 MLS/MIN Ascorbic Acid (Vitamin C Tab) 500 mg QAM PO 07/16/16 08:00 08/15/16 08:59 07/19/16 08:31 500 MG Atorvastatin Calcium (Lipitor Tab) 40 mg HS PO 07/16/16 21:00 08/15/16 20:59 07/18/16 21:45 40 MG Docusate Sodium (coLACE CAP) 100 mg HS PO 07/16/16 21:00 08/15/16 20:59 07/18/16 21:45 100 MG Fentanyl (Duragesic Patch) 50 mcg Q72H TD 07/16/16 08:00 07/30/16 07:59 07/19/16 08:36 50 MCG Pantoprazole Sodium (Protonix Tab) 40 mg DAILY PO 07/16/16 08:00 08/15/16 08:59 07/19/16 08:31 40 MG Tamsulosin HCl (Flomax Cap) 0.4 mg HS PO 07/16/16 21:00 08/15/16 20:59 07/18/16 21:46 0.4 MG Lactobacillus Acidophilus (Floranex Tab) 4 tab HS PO 07/16/16 21:00 08/15/16 20:59 07/18/16 21:45 4 TAB Megestrol Acetate (Megace Susp) 400 mg BID PO 07/16/16 09:00 08/15/16 08:59 07/19/16 08:32 400 MG Acetaminophen (Tylenol Tab) 650 mg Q4H PRN PO 07/15/16 22:30 08/14/16 22:29 07/16/16 02:05 650 MG Al Hydrox/Mg Hydrox/Simethicone (Maalox Max Susp) 15 ml Q4H PRN PO 07/15/16 22:30 08/14/16 22:29 Ondansetron HCl (Zofran Inj) 4 mg Q6H PRN IV 07/15/16 22:30 08/14/16 22:29 07/19/16 00:47 4 MG Heparin Sodium (Porcine) (Heparin Sq 5000 Unit/0.5ml) 5,000 unit Q12H SQ 07/16/16 09:00 08/15/16 08:59 07/19/16 08:37 5,000 UNIT Miscellaneous (Fentanyl Patch Remove & Waste) 1 ea Q72H N/A 07/16/16 07:59 08/15/16 07:58 07/19/16 08:37 1 EA Miscellaneous Information (Check Fentanyl Patch Placement) 1 ea QS N/A 07/16/16 16:00 08/15/16 15:59 07/19/16 08:32 1 EA Hydromorphone HCl (Dilaudid Inj) 1 mg Q4 PRN IV 07/16/16 08:15 07/30/16 08:14 07/19/16 08:36 1 MG Morphine Sulfate 2 mg 2 mg Q4 PRN IV 07/16/16 08:15 07/30/16 08:14 Sodium Chloride (Nss 1000ml) 1,000 ml @ 150 mls/hr Q6H40M IV 07/16/16 19:30 08/15/16 19:29 07/19/16 06:44 150 MLS/HR Sucralfate (Carafate Susp) 1 gm QID@0700,1100,1600,2100 PO 07/18/16 11:00 08/17/16 10:59 07/19/16 06:42 1 GM Polyethylene 17 gm 17 gm DAILY PO 07/19/16 08:00 08/18/16 07:59 07/19/16 08:31 17 GM Potassium Chloride/Prmx (Kcl 10 Meq / Wtr/Premixed Water) 100 ml @ 100 mls/hr 0900,1000 IV 07/19/16 09:00 07/19/16 12:00 07/19/16 10:23 100 MLS/HR Physical Exam Date Time Temp Pulse Resp B/P Pulse Ox O2 Delivery O2 Flow Rate FiO2 07/19/16 08:08 36.5 103 22 146/83 91 2.0 07/19/16 00:37 36.5 85 20 165/83 92 Nasal Cannula 2.0 07/19/16 00:30 Nasal Cannula 2.0 07/18/16 16:10 96 Room Air 07/18/16 16:07 36.4 67 18 144/86 94 Room Air General Appearance: no apparent distress, + pertinent finding Neck: no JVD Respiratory: no respiratory distress, no accessory muscle use, + decreased breath sounds, + pertinent finding (nasal cannula) Cardiovascular: regular rate, rhythm, no edema, + normal peripheral pulses Abdomen: normal bowel sounds, + tenderness, + pertinent finding (pulsatile mass ) Neurologic/Psychiatric: alert, + disoriented Laboratory Results Last 24 Hours Test 07/18/16 14:00 07/19/16 05:55 Urine Color YELLOW Urine Appearance CLEAR Urine pH 5.0 Urine Specific [place] 1.015 Urine Protein TRACE Urine Glucose (UA) NEG Urine Ketones NEG Urine Occult Blood NEG Urine Nitrite NEG Urine Bilirubin NEG Urine Urobilinogen NEG Urine Leukocyte Esterase NEG Urine WBC (Auto) 1-5 /hpf Urine RBC (Auto) 0-4 /hpf Urine Hyaline Casts (Auto) 1-5 /lpf Urine Epithelial Cells (Auto) 5-10 /lpf Urine Bacteria (Auto) NEG White Blood Count 12.97 K/uL Red Blood Count 3.76 M/uL Hemoglobin 8.7 g/dL Hematocrit 28.7 % Mean Corpuscular Volume 76.3 fL Mean Corpuscular Hemoglobin 23.1 pg Mean Corpuscular Hemoglobin Concent 30.3 g/dl RDW Standard Deviation 57.3 fL RDW Coefficient of Variation 20.6 % Platelet Count 156 K/uL Mean Platelet Volume 9.9 fL Sodium Level 146 mmol/L Potassium Level 3.4 mmol/L Chloride Level 115 mmol/L Carbon Dioxide Level 21 mmol/L Anion Gap 10.0 mmol/L Blood Urea Nitrogen 46 mg/dl Creatinine 1.20 mg/dl Est Creatinine Clear Calc Drug Dose 47.3 ml/min Estimated GFR () 70.1 Estimated GFR (Non- 60.5 BUN/Creatinine Ratio 38.0 Random Glucose 116 mg/dl Calcium Level 8.5 mg/dl Thyroid Stimulating Hormone (TSH) 0.396 uIu/ml Assessment & Plan Palliative Performance Scale: 40 % Problem list: Weakness Confusion/altered mental status 2/2 metabolic encephalopathy and metastatic SCLC Hypercalcemia Squamous cell lung cancer, metastatic DEVANG on CKD Anemia Elevated troponin Goals of care (Z51.5) Palliative care plan: Discussed with patient, daughter Florence, and Dr. Page. Plan is for patient to be home with hospice. If they do decide to do the palliative radiation, this will need to be scheduled and coordinated. Goal is strictly for comfort. The patient is still having pain, and now that goal is for comfort, I would recommend increasing the fentanyl patch to 75mcg/hr Q72h which the patient and daughter were okay with. The patient has been adamant that he does not want morphine, so I would order something else such as Roxicodone IR 5-10mg PO PRN for pain. I did provide some education, however, on morphine and its benefits for pain and SOB, especially at the end of life. They verbalized understanding and denied any further questions/concerns. Thank you kindly for consulting me on the nice patient and his family. Please contact me with any further palliative care needs.
--- NOTE | 2016-07-19 12:44 | Radiation Oncology Consult ---
Radiation Oncology Consult Date / Reason Jul 19, 2016. [facility] Medical Oncologist: Dr. Eliseo Gregory Radiation Oncologist: Dr. Phil Montgomery Surgeon: Dr. Gonzalo Deluna Other Providers: Hospitalist - Dr. Kannan Page Diagnosis (1) Metastatic lung carcinoma (2) Altered mental status History of Present Illness I am seeing Mr. Mckinnon in consultation at the request of Dr. Gregory and Dr. Page. The patient was seen at bedside and the daughter was also present. ECOG PS: 3 Mr. Mckinonn is a 70 year old male who presents with a diagnosis of of metastatic lung cancer. The patient was previously diagnosed with lung cancer in January 2016. The patient underwent a left upper lobectomy, chest wall resection and lymph node dissection by Dr. 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 Visceral pleural invasion and lymphovascular space invasion was noted however the margins were all negative. All of the mediastinal lymph nodes were negative as well. The tumor was staged as pT3N0. The patient did not receive any adjuvant therapy. More recently, the patient presented to the emergency room for altered mental status and left chest wall pain. The patient was admitted due to hypercalcemia. The patient did have a CT head without contrast on 07/15/2016 which did not reveal any intra-cranial findings. The patient did have a CT chest, abdomen, pelvis on 07/15/2016 which revealed: "IMPRESSION: 1. Advanced pulmonary emphysema 2. Postsurgical changes of a left upper lobe resection 3. Loculated left apical hydropneumothorax, decreased in size when compared the prior study 4. Stable saccular aneurysm arising from the aortic arch 5. Stable mild mediastinal lymphadenopathy 6. Slight increase in the volume of the left pleural effusion. Enlarging left-sided pleural-based nodules suspicious for metastatic disease. 7. 4.5 cm left-sided chest wall mass , suspicious for metastatic disease. 8. Postsurgical left-sided rib deformities. 9. No acute traumatic findings. IMPRESSION: 1. No CT evidence of acute intra-abdominal or pelvic injury 2. Small left pleural effusion and pleural-based nodularity suspicious for metastatic disease 3. Severe pulmonary emphysema 4. Equivocal subtle rib metastasis 5. 6.5 cm abdominal aortic aneurysm." He did have a bone scan on 07/18/2016 which revealed: "IMPRESSION: 1. Findings consistent with diffuse bilateral rib metastatic change 2. Operative resection of at least one left upper rib 3. Remainder the examination shows mild scattered degenerative activity." The patient was seen in consultation by Dr. Eliseo Gregory from medical oncology was advised against any chemotherapy until the patient's overall performance status improves. We are asked to evaluate the patient for palliative radiation therapy. The patient is somewhat incoherent however he was able to show us we are his pain was overall. He does have some discomfort in his left chest wall. Social History Smoking Status: Former Smoker Hx Tobacco Use In Past Year?: Yes (pt quit smoking in 2015) Quit Date: Feb 15, 2016 Do You Dip or Chew Tobacco: No Hx Alcohol Use: No Hx Substance Use : Yes (former smoker) Allergies Coded Allergies: Anesthetics, Amide (Unverified Allergy, Unknown, UNKNOWN REACTION TO UNKNOWN "ANESTHESIA", 06/03/16) Indomethacin (Verified Allergy, Unknown, UNKNOEN, 07/15/16) Home Medications Scheduled Ascorbic Acid (Vitamin C), 500 MG PO QAM Atorvastatin (Lipitor), 40 MG PO HS Chlorthalidone (Hygroton), 25 MG PO QAM Cholecalciferol (Vitamin D3), 10,000 UNIT PO QAM Docusate Sodium (Docusate Sodium), 1 CAP PO HS Fentanyl (Duragesic), 50 MCG TD [id number] Ibuprofen (Advil), PO PRN UD Megestrol Acetate (Megace), 400 MG PO BID Pantoprazole (Protonix), 40 MG PO DAILY Probiotic Product (Probiotic), 1 CAP PO HS Sucralfate (Carafate), 1 TSP PO QID Tamsulosin Hcl (Flomax), 0.4 MG PO HS Warfarin Sod (Jantoven), 5 MG PO ON HOLD Scheduled PRN Doxylamine Succinate (Sleep) (Unisom), 50 MG PO HS PRN for Sleep Review of Systems Ear/Hearing: Ear Side: Bilateral Hearing Ability: Hard of Hearing Hearing Aid: None Edema: Present?: No Location Body Site Modifier: Bilateral Pain Management Side: Left Patient Preferred Pain Scale: 0 - 10 Initial Pain Intensity: 8.0 Pain Description: Burning, Sharp Physical Exam Height: 5 (Feet) 9.00 (Inches) 175.3 (Centimeters) 1.7526 (Meters) Weight: 130 (Pounds) 8.2 (Ounces) 59.200 (Kilograms) 28142.000 (Grams) Date Time Temp Pulse Resp B/P Pulse Ox O2 Delivery O2 Flow Rate FiO2 07/19/16 08:15 Nasal Cannula 2.0 07/19/16 08:08 36.5 103 22 146/83 91 2.0 07/19/16 00:37 36.5 85 20 165/83 92 Nasal Cannula 2.0 07/19/16 00:30 Nasal Cannula 2.0 07/18/16 16:10 96 Room Air 07/18/16 16:07 36.4 67 18 144/86 94 Room Air General Appearance: + mild distress Head: normocephalic, atraumatic Eyes: normal inspection ENT: hearing grossly normal Respiratory/Chest: + pertinent finding (Tenderness to palpation in the left chest wall. Limited exam due to patient noncompliance. Palpable mass in the left chest wall. ) Cardiovascular: no edema, no gallop, no JVD, no murmur Abdomen/GI: normal bowel sounds, non tender, soft, no organomegaly Back: normal inspection Extremities: normal inspection, no calf tenderness Neurologic/Psych: line repairer tower II-XII nml as tested, no motor/sensory deficits, + disoriented Pathology Pathology Comments 03/05/2016 SPECIMEN: Left upper lobe of lung, left chest wall (two ribs and soft tissue) and lymph nodes. PROCEDURE: Lobectomy, chest wall resection and lymph node resections. SPECIMEN LATERALITY: Left. TUMOR SITE: Upper lobe. TUMOR SIZE: 6.0 x 5.0 x 4.0 cm. TUMOR FOCALITY: Unifocal. HISTOLOGIC TYPE: Squamous cell carcinoma with focal areas of keratinization. HISTOLOGIC GRADE: Poorly differentiated (G3). VISCERAL PLEURA INVASION: Present. TUMOR EXTENSION: Tumor invades the soft tissue of the chest wall (pT3). No direct invasion into actual bone of the ribs is identified. MARGINS: Negative. MARGIN DISTANCES: The tumor is 1.5 cm from the bronchial, vascular and parenchymal margin of the lung. It is approximately 0.8 cm from soft tissue margins. LYMPH-VASCULAR INVASION: Present. An arteriole with a thrombus of carcinoma is present within the lung portion of the specimen (slide A4). LYMPH NODES: NUMBER OF LYMPH NODES EXAMINED: 15 NUMBER OF LYMPH NODES INVOLVED: 0 (left upper lobe bronchial 0/4, L12 0/1, L11 0/3, L13 0/2, L10 0/2, level 5 0/1, level 6 0/1 and level 9 0/1) . PATHOLOGIC STAGING: pT3 pN0 03/07/2016 LUNG, LEFT LOWER LOBE, WEDGE EXCISION: 1. PLEURAL FIBRIN WITH MILD ACUTE AND CHRONIC INFLAMMATION. 2. SUBPLEURAL FIBROSIS WITH CHRONIC INFLAMMATION. 3. EMPHYSEMATOUS CHANGE. 4. NEGATIVE FOR MALIGNANCY. 07/18/2016 CHEST WALL, LEFT POSTERIOR, FINE NEEDLE ASPIRATION: SQUAMOUS CELL CARCINOMA. SEE COMMENT. COMMENT: There is insufficient material in the current specimen for any ancillary testing. Imaging Imaging studies: and pertinent findings noted below Imaging Comments Bone Scan - 07/18/2016 WHOLE BODY BONE SCAN HISTORY: Metastatic disease Bone Mets RADIOTRACER: 26.1 mCi Tc-99m MDP STUDY/IMAGES: Planar anterior and posterior whole body imaging was performed 3 hours following the intravenous administration of radiotracer. COMPARISON: CT chest abdomen and pelvis dated 07/15/2016 FINDINGS: Operative changes consistent with resection of the left fifth rib. Mottled activity characteristics of the ribs bilaterally base possibly metastatic disease. The spine specifically shows no well-defined metastatic change by bone scan criteria. There is scattered moderate degenerative changes of the shoulders and to a lesser extent hips. Bilateral renal activity is present. IMPRESSION: 1. Findings consistent with diffuse bilateral rib metastatic change 2. Operative resection of at least one left upper rib 3. Remainder the examination shows mild scattered degenerative activity. CT OF THE CHEST WITHOUT IV CONTRAST - 07/15/2016 CLINICAL HISTORY: Left-sided chest pain status post trauma COMPARISON STUDY: 06/03/2016 CT DOSE: 1153.79 mGy.cm TECHNIQUE: CT of the thorax was performed from the thoracic inlet to the lung bases. Images are reviewed in the axial, sagittal, and coronal planes. IV contrast was not administered for this examination. FINDINGS: Thyroid: Imaged portions of the thyroid gland are normal in appearance. Thoracic aorta: The thoracic aorta is normal in course and caliber, noting standard 3 vessel arch anatomy. Heart: The heart is normal in size and configuration, without pericardial effusion. Lungs and pleural spaces: There is severe pulmonary emphysema. There is no pleural fluid on the right. There is a small left pleural effusion which is increasing in size. There are enlarging pleural-based nodules on the left, suspicious for metastatic disease. There is a 4.5 cm left-sided chest wall mass which appears larger on the prior study and is suspicious for neoplasm. There is a small loculated left-sided hydropneumothorax. The cavity is smaller than on the prior study. There are multiple collateral vessels within the left chest wall. There is a stable aneurysm involving the left aortic arch. There is a stable 12 mm irregular right apical opacity Mediastinum: There are borderline mediastinal lymph nodes Josephine: There is no evidence of pathologic hilar adenopathy given the limitations of a noncontrast study Axilla: There is a soft tissue mass within the left lower axilla/chest wall region. Upper abdomen: Partially visualized upper abdominal viscera is within normal limits. Skeletal structures: There are surgical deformities involving the left chest wall. IMPRESSION: 1. Advanced pulmonary emphysema 2. Postsurgical changes of a left upper lobe resection 3. Loculated left apical hydropneumothorax, decreased in size when compared the prior study 4. Stable saccular aneurysm arising from the aortic arch 5. Stable mild mediastinal lymphadenopathy 6. Slight increase in the volume of the left pleural effusion. Enlarging left-sided pleural-based nodules suspicious for metastatic disease. 7. 4.5 cm left-sided chest wall mass, suspicious for metastatic disease. 8. Postsurgical left-sided rib deformities. 9. No acute traumatic findings. CT SCAN OF THE ABDOMEN AND PELVIS WITHOUT CONTRAST - 07/15/2016 CLINICAL HISTORY: Left flank pain status post trauma COMPARISON STUDY: 06/04/2016 TECHNIQUE: CT scan of the abdomen and pelvis was performed from the lung bases to the proximal femurs. Images are reviewed in the axial, sagittal, and coronal planes. IV contrast was not administered for this examination. CT DOSE: FINDINGS: Lower chest: There are chest wall collaterals present. There is a small left pleural effusion with pleural-based nodules suspicious for metastatic disease. There is severe pulmonary emphysema. There is subtle radiolucencies. The findings may indicate metastatic disease. Liver: The unenhanced liver is normal in size, contour, and attenuation. There is no intrahepatic biliary ductal dilatation. Gallbladder: Unremarkable. Spleen: Normal in size and attenuation. Pancreas: Unremarkable. Adrenal glands: There is mild adrenal gland thickening similar to the prior study. Kidneys: The unenhanced kidneys are normal in size without hydronephrosis. There is no contour deforming renal mass lesion. No renal calculi are identified. Bowel: There are no transition zones indicate bowel obstruction. There is no acute diverticulitis. Peritoneum: There is no intraperitoneal free air or abdominal ascites. Vasculature: There is a 6.5 cm abdominal aortic aneurysm. Adenopathy: None. Pelvic viscera: The bladder, and pelvic viscera are unremarkable. Skeletal structures: No lumbar fractures or subluxations are visualized IMPRESSION: 1. No CT evidence of acute intra-abdominal or pelvic injury 2. Small left pleural effusion and pleural-based nodularity suspicious for metastatic disease 3. Severe pulmonary emphysema 4. Equivocal subtle rib metastasis 5. 6.5 cm abdominal aortic aneurysm Assessment & Recommendations Mr. Mckinnon is a 70-year-old gentleman who presents with metastatic lung cancer. The patient was initially treated with a lobectomy and chest wall resection and lymph node dissection by Dr. Deluna in February 2016 which revealed a pT3N0 squamous cell carcinoma of the left upper lobe. The patient did not receive any adjuvant therapy. More recently, the patient presented with altered mental status, hypercalcemia and left chest wall pain. The patient was admitted to the hospital and imaging studies did reveal metastatic disease involving the ribs as well as recurrent masses in the left chest wall. Medical oncology as evaluated the patient and at this point they are not advising for chemotherapy until the patient's overall performance status improves. We are seeing the patient in consultation to discuss the role of palliative external beam radiation therapy to the left chest wall. In general, I did recommend palliative radiation therapy to the left chest wall. I have recommended 5-10 fractions of radiation therapy which may be done in the inpatient setting or in the outpatient setting. The patient does come from [place], [place] and I have recommended consideration of receiving palliative radiation therapy at [facility]. I explained to the daughter and patient that we would be happy to take care of them however the amount of traveling may be complicated for the patient and his family. At this point, I did not want a pressure the family and recommended that they take the weekend to discuss whether or not they think he should receive palliative radiation therapy which I have recommended. Additionally, I wanted them to think about whether or not they would want to have the radiation therapy here or in [place], [place] which may be more convenient and I explained to them that the treatment should be appropriate there as well. I have given my contact information to the daughter and patient. If they do want to pursue treatment with us, I asked them to either let the primary team know or call our department and we can arrange treatment. Also, I have explained to them that I would require additional consent from the daughter as the patient remains disoriented. We have explained the indications, alternatives, benefits, risks and side effects of radiation therapy to the lung. We have explained the most common side effects with include but are not limited to skin erythema, skin break down , pulmonary fibrosis, adhesion development, radiation pneumonitis, rib fracture , heart failure and heart disease, esophagitis, development of fistula, fatigue and development of secondary malignancy. We have explained the CT simulation process and treatment planning. We explained what to expect before, during and after treatment on a regular basis. The patient understands and would be willing to consent to treatment. The patient and family had multiple questions which were answered to their full satisfaction. Thank you for allowing us to participate in the care of this patient. This chart was completed in part utilizing [employer] Speech Voice Recognition software. Attempts were made to minimize the grammatical errors, random word insertions, pronoun errors and incomplete sentences. Any formal questions or concerns about the content, text or information contained within the body of this dictation should be directly addressed to the provider for clarification. Phil Montgomery MD Department of Radiation Oncology [facility] Total Time In Consultation I spent 30 minutes examining and counseling the patient. I spent 15 minutes completing this note. Copy To Eliseo Gregory D.O.; Gonzalo Deluna MD
[2016-07-19 15:32] VITALS: BP 144/81; PULSE 86; TEMP 36.5; O2SAT 96
[2016-07-19] MEDS ORDERED: MoRPHine SULFATE 5 MG/0.25 ML UDP PO PRN ×2 (17:15→18:45)
--- NOTE | 2016-07-19 17:24 | SURGERY PROGRESS NOTE ---
DATE: 07/19/2016 Mr. Mckinnon was seen today. I had a long talk with the patient and his family. Biopsy yesterday showed indeed he does have metastatic squamous cell carcinoma. Bone scan shows uptake in his ribs where he is having pain. Discussed this case with Dr. Phil Montgomery as well as Dr. Eddie Page. He was seen by neurology who felt this was a metabolic encephalopathic changes we are seeing. No evidence of metastatic disease to his brain thus far on CT scan. ASSESSMENT AND PLAN: Metastatic lung cancer. Again, this is a bit of a surprise as he had a clean resection margin with negative nodes about 4 months ago. At any rate, his aneurysm is also enlarging, has grown several millimeters in less than a year and I feel that this is going to also present a life-threatening problem and I think it is going to happen sooner rather than later. Having said all that he does look better to me. He is more awake, alert and I believe understands his situation. I am concerned about his pain. I discussed this with Dr. Page and plans are being made to send him home on hospice as early as tomorrow. TOPHER
[2016-07-19] MEDS ORDERED: NURSING VERBAL MED ORDER ONE (17:45)
--- NOTE | 2016-07-19 17:47 | Discharge Instructions ---
Discharge Instructions Admission Reason for Admission: Altered Level Of Consciousness, Hypercalcemia (Gemma Novak MD) Discharge Discharge Diagnosis / Problem: Metastatic Lung Cancer (Gemma Novak MD) Discharge Goals Goal(s): Decrease discomfort, Learn about illness, Diagnostic testing, Prevent Disease Progression (Gemma Novak MD) Activity Recommendations Activity Limitations: as noted below Lifting Limitations: gradually increase as tolerated Exercise/Sports Limitations: gradually increase as tolerated Shower/Bathe: no limitations Driving or Machine Use: no limitations . (Gemma Novak MD) Instructions / Follow-Up Instructions / Follow-Up You have been given medicine for pain which we encourage you to use as needed. Please do not hesitate to take the pain medicine as you need it. If you have any questions, please do not hesitate to contact us. You will have the opportunity to establish with a family doctor should you need anything. Thank you for allowing us to participate in your care. (Gemma Novak MD) Current Hospital Diet Patient's current hospital diet: AHA Diet (Heart Healthy) (Gemma Novak MD) Discharge Diet Recommended Diet: Regular Diet Fluid Restriction: None (Gemma Novak MD) Pending Studies Studies pending at discharge: no (Gemma Novak MD) Medical Emergencies . Who to Call and When: Medical Emergencies: If at any time you feel your situation is an emergency, please call 911 immediately. . (Gemma Novak MD) Non-Emergent Contact Non-Emergency issues call your: Primary Care Provider, Oncologist, Surgeon Call Non-Emergent contact if: your pain is not controlled, your pain is worsening, your pain is unusual for you, your pain is concerning you, you have any medication questions . (Gemma Novak MD) . "Provider Documentation" section prepared by Gemma Simon. (Gemma Novak MD) VTE Core Measure Inpt VTE Proph given/why not?: Unfractionated heparin SQ (Gemma Novak MD)
[2016-07-19] MEDS ORDERED: OXYC10SO PO (17:56)
[2016-07-19] MEDS ORDERED: FENT25DI10 TD (17:58)
[2016-07-19] MEDS ORDERED: FENTANYL PATCH REMOVE & WASTE SCH (18:00)
[2016-07-19] MEDS ORDERED: FENTANYL 75 MCG/HR TDSY TD SCH (18:00)
[2016-07-19 18:01] VITALS: BP 144/81; PULSE 86; TEMP 36.5; O2SAT 96
[2016-07-19] MEDS ORDERED: MoRPHine SULFATE 10 MG/0.5 ML UDP PO ONE (18:15)
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
[2016-07-20] MEDS ORDERED: CHECK FENTANYL PATCH PLACEMENT SCH
--- NOTE | 2016-07-20 16:47 | Medical Student: [facility] ---
Med Student History & Physical Date & Time of Service: Jul 19, 2016 at 10:04 Chief Complaint: Altered Level Of Consciousness, Hypercalcemia Primary Care Physician: Joyce Mustafa C.R.N.P. History of Present Illness Source: patient, hospital records This is 70 year-old male with extensive history significant for COPD, CABG, MIx2 , CKD, HTN, hypercholesterolemia, AAA, squamous cell lung carcinoma s/p left upper lobectomy, gastritis, and BPH presented to the ER with his daughter on Saturday 07/15 with complaint of one week of decreased appetite, weakness and decreased mental status. Neurology is consulted for metabolic encephalopathy. According to ER notes, patient was confused and could not give answer, so most of questions answered by his daughter. He had 2 falls recently without any pre- warning signs, such as dizziness or chest pain. He stated that his leg just gave out. He didn't hit his head in any of these events but states that he could not remember anything about those falls. Per daughter, he also has increased incontinence and increased O2 requirement, which he normally has for COPD. During work up, his labs show elevated calcium, probably secondary to SCLC , low blood count, elevated WBC, and elevated BUN/Cr ratio. Chest-xray shows advanced emphysema, changes of left upper lobe resection, and stable saccular aneurysm. No abnormal findings on CT. Today, patient is a little bit confused and has difficulty to follow commands. Intermittently, he would be "zoned out" but was able to answer questions appropriately with some probing. Patient also states that he has pain everywhere , with severe back pain. He has headache sometimes. He denies N/V, tingling or numbness Past Medical/Surgical History COPD CABG MIx2 CKD HTN Hypercholesterolemia AAA Aneurysms Squamous cell carcinoma Gastritis BPH Family History Father: heart disease Mother: cancer Other: lung disease Social History Smoking Status: Former Smoker (1ppd for 60 years, quit Feb 2016) Smokeless Tobacco Use: Yes Alcohol Use: occasionally Drug Use: none Marital Status: single Housing status: lives with family Occupational Status: retired Allergies Coded Allergies: Anesthetics, Amide (Unverified Allergy, Unknown, UNKNOWN REACTION TO UNKNOWN "ANESTHESIA", 06/03/16) Indomethacin (Verified Allergy, Unknown, UNKNOEN, 07/15/16) Medications Fentanyl (Duragesic), 25 MCG TD Q72H Oxycodone Oral Soln (Roxicodone Oral Soln), 5 MG PO Q3H Review of Systems Constitutional: No chills, No fever Eyes: No worsening of vision Respiratory: No cough Cardiovascular: No chest pain Abdomen: No pain Musculoskeletal: No swelling Neurologic: No numbness/tingling Physical Exam Vital Signs (24 Hours) Date Time Temp Pulse Resp B/P Pulse Ox O2 Delivery O2 Flow Rate FiO2 07/19/16 08:08 36.5 103 22 146/83 91 2.0 07/19/16 00:37 36.5 85 20 165/83 92 Nasal Cannula 2.0 07/19/16 00:30 Nasal Cannula 2.0 07/18/16 16:10 96 Room Air 07/18/16 16:07 36.4 67 18 144/86 94 Room Air 07/18/16 10:34 152/83 General Appearance: + cachetic, + thin Head: atraumatic Eyes: normal inspection, PERRL ENT: hearing grossly normal Neck: supple, no adenopathy Respiratory/Chest: + decreased breath sounds, + rhonchi (upon expiration) Cardiovascular: regular rate, rhythm, + systolic murmur (grade 3) Abdomen/GI: normal bowel sounds, soft Extremities/Musculoskelatal: normal inspection, no calf tenderness, + pertinent finding 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 nml as tested (CNII: PERRL, CNIII, IV, : normal horizontal test, CNV: symmetrical facial expression, CNVII: normal facial expression, CNVIII: hearing is grossly normal, CNIX/X: no problem with swallowing, no uvea deviation, CNXII: no tongue protrusion deviation.), alert, oriented x 3 (Able to recall place, date, and current president) Skin: warm/dry Diagnostics Laboratory Results Results Past 24 Hours Test 07/18/16 14:00 07/19/16 05:55 Range/Units Urine Color YELLOW Urine Appearance CLEAR CLEAR Urine pH 5.0 4.5-7.5 Urine Specific [place]pler 1.015 1.000-1.030 Urine Protein TRACE NEG Urine Glucose (UA) NEG NEG Urine Ketones NEG NEG Urine Occult Blood NEG NEG Urine Nitrite NEG NEG Urine Bilirubin NEG NEG Urine Urobilinogen NEG NEG Urine Leukocyte Esterase NEG NEG Urine WBC (Auto) 1-5 0-5 /hpf Urine RBC (Auto) 0-4 0-4 /hpf Urine Hyaline Casts (Auto) 1-5 0-5 /lpf Urine Epithelial Cells (Auto) 5-10 0-5 /lpf Urine Bacteria (Auto) NEG NEG White Blood Count 12.97 4.8-10.8 K/uL Red Blood Count 3.76 4.7-6.1 M/uL Hemoglobin 8.7 14.0-18.0 g/dL Hematocrit 28.7 42-52 % Mean Corpuscular Volume 76.3 80-100 fL Mean Corpuscular Hemoglobin 23.1 25-34 pg Mean Corpuscular Hemoglobin Concent 30.3 32-36 g/dl RDW Standard Deviation 57.3 36.4-46.3 fL RDW Coefficient of Variation 20.6 11.5-14.5 % Platelet Count 156 130-400 K/uL Mean Platelet Volume 9.9 7.4-10.4 fL Sodium Level 146 136-145 mmol/L Potassium Level 3.4 3.5-5.1 mmol/L Chloride Level 115 98-107 mmol/L Carbon Dioxide Level 21 21-32 mmol/L Anion Gap 10.0 3-11 mmol/L Blood Urea Nitrogen 46 7-18 mg/dl Creatinine 1.20 0.60-1.40 mg/dl Est Creatinine Clear Calc Drug Dose 47.3 ml/min Estimated GFR () 70.1 Estimated GFR (Non- 60.5 BUN/Creatinine Ratio 38.0 10-20 Random Glucose 116 70-99 mg/dl Calcium Level 8.5 8.5-10.1 mg/dl Thyroid Stimulating Hormone (TSH) 0.396 0.300-4.500 uIu/ml other (Advanced emphysema, changes of left upper lobe resection, stable saccular aneurysm) Impression Assessment and Plan This is 70 year-old male with extensive history significant for COPD, CABG, MIx2 , CKD, HTN, hypercholesterolemia, AAA, squamous cell lung carcinoma s/p left upper lobectomy, gastritis, and BPH presented to the ER with his daughter on Saturday 07/15 with complaint of one week of decreased appetite, weakness and decreased mental status. Differential diagnosis include: 1. Metabolic encephalopathy - Patient admitted with hypercalcemia secondary to SCLC, dehydration due to not being able to eat or drink, CKD, and metastatic cancer 2. Medications - Patient was on multiple medications at home as well as inpatient. Drug interactions can lead to altered mental status 3. Thyroid problem - Thyroid problems, such as hyperthyroidism or hypothyroidism can cause changes in metabolism and subsequently altered mental status. However, this patient's TSH level is normal. 4. Vitamin deficiency, folate or B12 - In individuals with chronic alcohol consumption, altered mentation can occur. 5. Liver disease - high ammonia, as in the case of liver disease, can lead to encephalopathy. However, in this patient, LFTs was normal. Based on patient's medical conditions and exam, this patient most likely has metabolic encephalopathy secondary to underlying medical conditions and electrolytes imbalance. Recommend treating underlying conditions and correcting electrolytes imbalance. Neurology attending addendum: Patient was seen and evaluated with medical student. Please see my separate neurology consult note for full evaluation and recommendations. 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
[2016-08-05] MEDS ORDERED: DRGTP100 (18:46)
[2016-08-05] MEDS ORDERED: SUCR5SUS PO (18:46)
[2016-08-05] MEDS ORDERED: IBUP600T44 PO (18:46)
[2016-08-05] MEDS ORDERED: [UNRECOGNIZED DRUG - OTHER] (18:46)
[2016-08-05] MEDS ORDERED: DOCU-94 PO (18:46)
[2016-08-05] MEDS ORDERED: PRT/20 PO (18:46)
== END 2016-07-19 19:31 | disposition hospice, home (50) | DRG 542 ==
LOC: ENRESERVTM → ENRESERVDT → C.EDB 17:41 → C.4E 21:50
PROVIDERS: ADMIT Internal Medicine; ATTEND Family Medicine
DX: C79.51 Secondary malignant neoplasm of bone (principal); G93.41 Metabolic encephalopathy; N17.9 Acute kidney failure, unspecified; R64 Cachexia; Z68.1 Body mass index [BMI] 19.9 or less, adult; I24.8 Other forms of acute ischemic heart disease; I87.1 Compression of vein; E78.00 Pure hypercholesterolemia, unspecified; I25.10 Atherosclerotic heart disease of native coronary artery without angina pectoris; I25.2 Old myocardial infarction; E83.52 Hypercalcemia; N18.3 Chronic kidney disease, stage 3 (moderate); I12.9 Hypertensive chronic kidney disease with stage 1 through stage 4 chronic kidney disease, or unspecified chronic kidney disease; I71.4 Abdominal aortic aneurysm, without rupture; N40.1 Benign prostatic hyperplasia with lower urinary tract symptoms; N39.498 Other specified urinary incontinence; Z66 Do not resuscitate; R26.9 Unspecified abnormalities of gait and mobility; Z95.0 Presence of cardiac pacemaker; Z87.891 Personal history of nicotine dependence; E86.0 Dehydration; E78.5 Hyperlipidemia, unspecified; D50.9 Iron deficiency anemia, unspecified; Z87.19 Personal history of other diseases of the digestive system; Z51.5 Encounter for palliative care; F32.9 Major depressive disorder, single episode, unspecified; D72.829 Elevated white blood cell count, unspecified; Z85.118 Personal history of other malignant neoplasm of bronchus and lung; G89.4 Chronic pain syndrome; Z95.1 Presence of aortocoronary bypass graft; J44.9 Chronic obstructive pulmonary disease, unspecified; Z91.19 Patient's noncompliance with other medical treatment and regimen; Z88.4 Allergy status to anesthetic agent; Z79.899 Other long term (current) drug therapy; Z79.01 Long term (current) use of anticoagulants; Z88.6 Allergy status to analgesic agent; Z90.2 Acquired absence of lung [part of]; Z82.49 Family history of ischemic heart disease and other diseases of the circulatory system; Z83.6 Family history of other diseases of the respiratory system; Z80.3 Family history of malignant neoplasm of breast